=== PATIENT | female | born 1965 | race Caucasian/White ===

== ENCOUNTER 2025-05-27 14:11 | Outpatient (AMB) | payer OTHER, SELFPAY ==
--- OUTSIDE RECORDS SUMMARY | 2025-05-14 06:00 | XMS_ITS ---
Author Organization [facility] Address [address] [place] [id number] Care Team Providers Care Entry Processor Name Role Phone SERVANDO VUONG Primary Care Provider [phone] REASON FOR VISIT Possible sinus infection Encounters Encounter Location Date Provider Diagnosis [address] [id number] 05/14/2025 SERVANDO VUONG Plan Of Treatment Next Appt Details Provider Name:Madisyn Zavaleta, 1 08/10/2024 02:30:00 PM, [address] [place] [address], [phone], Progress Notes * Claire BARBERDOB:[birth year] (59 yo F)Acc No.[id number]:05/14/2025 Patient: Claire ABARCA Provider: Joyce VUONG MD :1965 A ge:59 Y S ex:Female Date:05/14/2025 Address:[address] [place] [id number] Subjective: * Chief Complaints: * 1 . Possible sinus infection. * Medical History: Objective: * Vitals: Assessment: Plan: * Treatment: * Procedure Codes: N OSHO NO SHOW FEE * Images: * Electronic signature of GISSEL VUONG MD on 05/27/2025 at 07:35 PM EST Sign off status: Pending * Provider: Joyce VUONG MD Date: 07/14/2024 Generated for Margarita powell/Vinay/Mohamud on: 07/27/2024 07:35 PM EST
--- NOTE | 2025-05-27 14:12 | A.PHYSOV ---
Vital Signs 05/27/25 14:14 Height 5 ft 9 in Weight 176 lb BMI 26.0 Intake Visit Reasons: 6W FUV Intake Note: Patient is a 59 year old female in office today for a low back pain follow up visit. 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 The pain was initially evaluated on April 15, 2025, and was radiating to the right leg. Despite extensive physical therapy and chiropractic treatments, the patient continued to experience persistent pain radiating to the right buttock and inner thigh. An MRI of the lumbar sacral spine obtained on January 22, 2025, showed right marginal osteophytes at the L5-S1 level with contact of the extraforaminal right L5 nerve root, which could be consistent with the patient's symptoms. The patient was initially prescribed 100 mg capsules of gabapentin, which were not found helpful, and later provided with a higher dose of 300 mg for nighttime use along with turmeric supplementation. The patient was also instructed on physician-guided home exercises. 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 The patient has experienced improvement in pain over the last four days, coinciding with running out of Plaquenil. Pain Description - Onset: Initially evaluated on April 15, 2025 - Quality: Radiating pain - Primary location: Lower back and hip - Radiation: Right leg, buttock, and inner thigh - Exacerbating factors: Not specified - Relieving factors: Turmeric supplementation, home exercises - Interference: Affects sleep, physical activity Results - Imaging: Lumbar sacral spine MRI on January 22, 2025, showed right marginal osteophytes at L5-S1 with contact of the extraforaminal right L5 nerve root PFSH Medical History (Updated 05/27/25 @ 14:32 by Han Desir DO) Sacroiliac inflammation Sacroiliac dysfunction Lumbar radiculitis Surgical History (Updated 05/27/25 @ 14:15 by Aislinn Simms MA) History of hernia repair History of Social History (Updated 05/27/25 @ 14:16 by Aislinn Simms MA) Alcohol intake: current Alcohol intake frequency: does not drink Patient Tobacco Use Status: Never used Tobacco Use of substances other than those prescribed or required for medical reasons: No Current occupational status: employed Review of Systems Narrative Review of Systems - Gastrointestinal: Denies changes in bowel habits - Constitutional: Denies fever or chills Denies change in bowel bladder habits, denies fever or chills Physical Exam Exam Exam: Physical Exam Patient appears to be in no acute distress, appropriately conversant oriented. She was able to ambulate without antalgia. She was able to perform heel walk and toe walk. Neurological examination was nonfocal. Lumbar range of motion was preserved, Pain with palpation over right gluteal muscle SI provocative maneuvers were negative patient demonstrated no upper motor neuron signs Vital Signs: BMI result Body Mass Index 26.0 Assessment & Plan Assessment & Plan (1) Lumbar radiculitis: Code(s): M54.16 - Radiculopathy, lumbar region Category: Medical (2) Sacroiliac dysfunction: Code(s): M53.3 - Sacrococcygeal disorders, not elsewhere classified Category: Medical (3) Sacroiliac inflammation: Code(s): M46.1 - Sacroiliitis, not elsewhere classified Category: Medical Plan Pain Management - Affect: Pain impacts sleep and physical activity - Analgesia: Gabapentin 300 mg at night, turmeric supplementation - Adverse Effects: None reported - Activities of Daily Living: Pain affects ability to perform physical activities - Aberrant Drug Related Behaviors: None reported Plan Patient was informed and verbally consented to the use of an ambient scribe for clinic note documentation during this visit. 1. Lower Back Pain The patient continues to experience lower back pain despite previous interventions such as physical therapy and chiropractic treatments. The plan includes continuing with gabapentin 300 mg at night and turmeric supplementation. The patient is also encouraged to perform physician-guided home exercises. 2. Hip Pain The patient reports persistent hip pain radiating to the right buttock and inner thigh. The plan includes continuing with current pain management strategies and considering referral to physical therapy for further evaluation and management. 3. Radicular Pain To The Right Leg The radicular pain to the right leg was initially evaluated and has shown some improvement. The plan includes monitoring the symptoms and adjusting treatment as necessary. 4. Osteophytes At L5-S1 The MRI findings of osteophytes at L5-S1 with contact of the extraforaminal right L5 nerve root are consistent with the patient's symptoms. The plan includes conservative management with pain medications and exercises. 5. Scarring Alopecia The patient has a history of scarring alopecia and has been on Plaquenil for nine years. The plan includes monitoring the condition and adjusting treatment as necessary. Discussion Notes During the visit, we discussed the patient's ongoing lower back and hip pain, and the potential benefits of continuing with gabapentin and turmeric supplementation. We also considered the possibility of referring the patient to physical therapy for further evaluation and management of the hip pain. The patient was advised to continue with home exercises and monitor symptoms, with follow-up as needed Patient Instructions - Continue taking gabapentin 300 mg at night. - Take turmeric supplementation as advised. - Perform physician-guided home exercises regularly. - Monitor symptoms and report any changes. - Consider referral to physical therapy for further evaluation. Orders: Orders PT Evaluation and Treatment Today M46.1 - Sacroiliitis, not elsewhere classified, M53.3 - Sacrococcygeal disorders, not elsewhere classified, M54.16 - Radiculopathy, lumbar region Coding Level of Care Code Est Pt Level 4 (00036) Complex visit Add On G2211 Diagnoses Lumbar radiculitis M54.16 Sacroiliac dysfunction M53.3 Sacroiliac inflammation M46.1
[2025-05-27 14:14] VITALS: BMI 26.0
--- OUTSIDE RECORDS SUMMARY | 2025-05-27 19:35 | XMS_ITS | Data Portability ---
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 Plan of Treatment Reminders Order Date Submit Date Provider Last Modified By Organization Details Last Modified Time Details Appointments None recorded . Lab cytology report, thin prep, smear or scraping , cervical or vaginal 2024 025 [facility]OR [facility] (Centralized Electronic Ordering - All Locations), Patient Can Go To The Location Of Their Choice, [id number] 5 12:15:58 hemoglob in, gastroin testinal , stool 2024 025 [email or web address] 1 In-Office Order, Internal Use Only DO Not Attach Compendium DO Not Attach Compendium, Do Not Delete/merge, [id number] 5 08:55:42 cytology report, thin prep, smear or scraping , cervical or vaginal 2023 024 [facility] (Centralized Electronic Ordering - All Locations), Patient Can Go To The Location Of Their Choice, [id number] 4 08:09:59 hemoglob in, gastroin testinal , stool 2023 024 [email or web address] 1 In-Office Order, Internal Use Only DO Not Attach Compendium DO Not Attach Compendium, Do Not Delete/merge, [id number] 10:12:46 pap test, thinprep , cervical 2022 023 [email or web address] [facility] (Centralized Electronic Ordering - All Locations), Patient Can Go To The Location Of Their Choice, [id number] 3 07:39:07 fecal occult blood, stool 2022 023 [email or web address] 1 In-Office Order, Internal Use Only DO Not Attach Compendium DO Not Attach Compendium, Do Not Delete/merge, [id number] 3 15:17:22 pap test, thinprep , cervical 2020 021 [facility], Cytopathology Service, [address] [place], [address], 1 08:21:13 fecal occult blood, stool 2020 021 [email or web address] 1 In-Office Order, Internal Use Only DO Not Attach Compendium DO Not Attach Compendium, Do Not Delete/merge, [id number] 1 10:02:32 pap test, thinprep , cervical 2019 020 [facility], Cytopathology Service, [address] [place], [address], 0 07:51:17 fecal occult blood, stool 2019 020 NESTOR In-Office Order, Internal Use Only DO Not Attach Compendium DO Not Attach Compendium, Do Not Delete/merge, [id number] 0 14:09:19 Referral None recorded . Procedures None recorded . Surgeries None recorded . Imaging MAMMO, screenin g, digital, bilatera l - Breast Aspirati on and/or Biopsy if needed 2024 025 [email or web address] Orders, [address], [place] [address], [place], [address], 5 12:00:15 MAMMO, screenin g, digital, bilatera l 2022 023 [facility] (Mammography), [address] [place], [address], 4 07:40:32 MAMMO, screenin g, digital, bilatera l 2020 021 [email or web address] [facility] (Mammography), [address] [place] [address], [address], 3 07:44:35 MAMMO, screenin g, digital, bilatera l 2019 020 [facility]), [address], [place], [address], 2 08:04:37 Medication Orders estradio l 1 mg tablet 2024 025 [facility]/Pharmacy #1130, [phone] [place], [address], 5 08:38:26 progeste satya microniz ed 200 mg capsule 2024 025 [facility]/Pharmacy #1130, [phone] [place], [address], 5 08:38:26 triamcin olone acetonid e 0.1 % topical ointment 2024 025 [facility]/Pharmacy #1130, [phone] [place], [address], 5 08:57:27 estradio l 1 mg tablet 2023 024 [facility]/Pharmacy #1130, [phone] [place], [address], 4 10:13:12 progeste satya microniz ed 200 mg capsule 2023 024 [facility]/Pharmacy #1130, [phone] [place], [address], 4 10:13:12 progeste satya microniz ed 200 mg capsule 2022 023 [facility], [address] [place] [address], [address], 3 15:17:25 estradio l 1 mg tablet 2022 023 [facility], [address] [place] [address], [address], 3 15:17:26 progeste satya microniz ed 200 mg capsule 2020 021 [facility], [address] [place] [address], [address], 1 10:02:34 estradio l 1 mg tablet 2020 021 [facility], [address] [place] [address], [address], 1 10:02:34 estradio l 1 mg tablet 2019 020 [facility]1130, [phone] [place], [address], 0 13:47:59 progeste satya microniz ed 200 mg capsule 2019 020 [facility], [phone] [place], [address], 0 13:47:59 Patient TargetsNo targets recorded. Patient Instructions Encounter Date Encounter Id Patient Instructions Last Modified By Organization Details Last Modified Time 05/27/2020 [id number] learning about healthy weight [place] Not available 05/27/2020 13:47:56 She is here for annual exam, is doing well on HRT, elects to continue. note from 2019: She is here for annual exam, has an inflammatory syndrome is on spices, herbs , meds and NSAIDS., with good improvement. She stopped the HRT 6 months ago because she just got too busy to pick it up, would like to restart. 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 We discussed having her begin to take hormone replacement therapy. She appears to be doing well. 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 We discussed the need to take a progestin if a uterus is present, and the rationale behind that. We discussed the stated risks of one in 10,000 of development of a blood clot/DVT/PE that could be life threatening. We discussed the Women's Health Initiative study and the findings. We discused the PEPPI study as well. She is aware that there are conflicting reports in the medical literature concerning the risks and benefits of HRT. We disussed that women are advised by ACOG to take HRT in the lowest dose necessary, and for the shortest time necessary, to control their symptoms. After a long discussion of the potential risks and benefits of HRT she elects to continue HRT. All questions were answered. Rx for HRT is called in to the pharmacy. Call if any vaginal bleeding occurs upon initiation of HRT, or at any time postmenopausally. Not available 05/27/2020 13:48:20 06/08/2021 [id number] learning about healthy weight Not available 06/08/2021 10:02:32 She is here for annual exam, is doing well on HRT, elects to continue. She is using [employer] phototherapy stem cell patches, we discussed that I do not understand the science behind them, but she feels they are quite useful and is happy to use them. 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 Not available 06/08/2021 10:06:15 08/09/2022 [id number] learning about healthy weight Not available 08/09/2022 15:17:22 She is here for annual exam, is doing well on her oral HRT and elects to continue. Note from 2020: She is here for annual exam, is doing well on HRT, elects to continue. She is using [employer] phototherapy stem cell patches, we discussed that I do not understand the science behind them, but she feels they are quite useful and is happy to use them. 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 We discussed the need to take a progestin if a uterus is present, and the rationale behind that. We discussed the stated risks of one in 10,000 of development of a blood clot/DVT/PE that could be life threatening. We discussed the Women's Health Initiative study and the findings. We discused the PEPPI study as well. She is aware that there are conflicting reports in the medical literature concerning the risks and benefits of HRT. We disussed that women are advised by ACOG to take HRT in the lowest dose necessary, and for the shortest time necessary, to control their symptoms. After a long discussion of the potential risks and benefits of HRT she elects to continue HRT. All questions were answered. Rx for HRT is called in to the pharmacy. Call if any vaginal bleeding occurs upon initiation of HRT, or at any time postmenopausally. Not available 08/09/2022 15:17:34 10/09/2023 [id number] She is here for annual exam, is doing well on her oral HRT and elects to continue. She appears to be doing well. Renew HRT. Monthly self breast exam was taught, and stressed, and is advised to call if she discovers any new mass in the breast. Not available 10/09/2023 10:13:18 12/15/2024 [id number] learning about healthy weight Not available 12/15/2024 08:38:23 She is here for annual exam, is doing well on her oral HRT and elects to continue. She appears to be doing well. Renew HRT. She appears to be doing well. She is having some vulvar itching, rx Aristocort for comfort and if has yeast on pap will call in [facility]Societyan. 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 We discussed the need to take a progestin if a uterus is present, and the rationale behind that. We discussed the stated risks of one in 10,000 of development of a blood clot/DVT/PE that could be life threatening. We discussed the Women's Health Initiative study and the findings. We discused the PEPPI study as well. She is aware that there are conflicting reports in the medical literature concerning the risks and benefits of HRT. We disussed that women are advised by ACOG to take HRT in the lowest dose necessary, and for the shortest time necessary, to control their symptoms. After a long discussion of the potential risks and benefits of HRT she elects to continue HRT. All questions were answered. Rx for HRT is called in to the pharmacy. Call if any vaginal bleeding occurs upon initiation of HRT, or at any time postmenopausally. Not available 12/15/2024 08:56:41 Reason for Referral None Reported. Results Created Date Observation Date Name Description Value Unit Range Abnormal Flag Note LastModifiedBy Organization Detail LastModifiedTime 05/27/2005/27/2020 pap test, thinp rep, cervi delores [id number] ThinP rep Pap, Image d: NEGAT LORRAINE FOR SQUAM OUS INTRA EPITH ELIAL CHUY [place] AND FLORY RO . Sushma Ontiveros a , CT( CP) (Case elect ramanclarence yonathan chopra 05 31 2020) ADEQU ACY: Satis facto ry Endoc ervic al/tr ansfo rmati on zone compo nent prese nt. SOURC E: ThinP rep Pap HPV IF ASCUS , Cervi delores, Image d CLINI DELORES INFOR MATIO N: HPV If Diagn osis of ASCUS . LPS neg, z12.4 , z01.4 19 Not Available [facility], Cytopathology Service [address] [place], [address], 05/31/2020 12:20:58 05/27/2005/27/2020 fecal occul t blood , stool Occult Blood negati ve Not Available In-Office Order Internal Use Only DO Not Attach Compendium DO Not Attach Compendium, Do Not Delete/merge, [id number] 05/27/2020 13:06:11 06/08/20 21 06/08/2021 PAP1C ASE [id number] ThinP rep Pap, Image d: NEGAT LORRAINE FOR SQUAM OUS INTRA EPITH ELIAL LESIO N AND MALIG JAYJYA . Note: The Pap test is a scree agata test with an inher ent false negat lorraine rate. Autom ated presc reeni ng of all liqui d based speci mens is perfo rmed by the ThinP rep Imagi ng Syste m unles s other [place] Florencio Hanks , CT( CP) (Case elect viral mcmanus maite d 06 19 2021) ADEQU ACY: Satis facto ry Endoc ervic al/tr ansfo rmati on zone compo nent absen t. SOURC E: ThinP rep Pap HPV IF Ascus : Refle x 16 and 18, Cervi delores, Image d CLINI DELORES INFOR MATIO N: HPV If Diagn osis of ASCUS . Z12.4 Not Available [facility], Cytopathology Service [address] [place], [address], 06/20/2021 07:45:48 06/08/20 21 06/08/2021 fecal occul t blood , stool Occult Blood negati ve Not Available In-Office Order Internal Use Only DO Not Attach Compendium DO Not Attach Compendium, Do Not Delete/merge, [id number] 06/08/2021 09:40:08 08/09/19 23 08/09/2022 [facility] results Patie nt Name: FLORENCIO SAM nt : 1965 (Age: 56) Lab Acces cary #: [id number] Colle ction Date: 023 Acces cary Date: 023 Sign Out Date: 023 Tissu e Sourc e: 1: THINP REP JUKEBOX ROUTEMAN PAP TEST, CERVI DELORES: Final Diagn osis: NEGAT LORRAINE FOR INTRA EPITH ELIAL LESIO N OR MALIG JAYJAY . Satis facto ry for evalu ation . Endoc ervic al/tr ansfo rmati on zone prese nt. Clini delores Histo ry: Date of Last Menst rual Perio d: not avail able Menst rual Histo ry: not avail able Contr acept lorraine Histo ry: not avail able Ancil anne Testi ng: HPV (ASCU S) Case image d by the Thin rep Emma Champion m with emory harrell or pelon Ruiz rmbrian at [facility] ate Refer ence Labor atory depar tment of Cytol ogy, [address] [place] Clini delores Histo ry (othe r): z01.4 19, 08/28 neg, routi ne scree n Phone #: [phone], On-Ca ll Patho logis t: [id number] Not Available [facility] (Centralized Electronic Ordering - All Locations) Patient Can Go To The Location Of Their Choice, [id number] 08/15/2022 11:36:17 08/09/19 23 08/09/2022 fecal occul t blood , stool Occult Blood negati ve Not Available In-Office Order Internal Use Only DO Not Attach Compendium DO Not Attach Compendium, Do Not Delete/merge, [id number] 08/09/2022 14:15:35 10/09/19 24 10/16/2023 IGP, RFX APTIM A HPV ASCU diagnosis: Commen t NEGAT LORRAINE FOR INTRA EPITH ELIAL LESTAMIE N OR FLORY RO . Not Available [facility] ([facility]) [address] [facility], [place], [address], 10/16/2023 08:09:59 10/09/19 24 10/16/2023 IGP, RFX APTIM A HPV ASCU specimen adequacy: Commen t Satis facto ry for evalu ation . Endoc ervic al and/o r squam ous metap lasti c cells (endo cervi delores compo nent) are prese nt. Not Available [facility] ([facility]) [address] [place], [address], 10/16/2023 08:09:59 10/09/19 24 10/16/2023 IGP, RFX APTIM A HPV ASCU clinician provided ICD10: Commen t Z01.4 19 Not Available [facility] ([facility]) [address] [place], [address], 10/16/2023 08:09:59 10/09/19 24 10/16/2023 IGP, RFX APTIM A HPV ASCU performed by: Saman carrasco, Cytot trena boateng (ASCP ) Not Available [facility] ([facility]) [address] [facility], [place], [address], 10/16/2023 08:09:59 10/09/19 24 10/16/2023 IGP, RFX APTIM A HPV ASCU . . Not Available [facility] ([facility]) [address] [facility], [place], [address], 10/16/2023 08:09:59 10/09/19 24 10/16/2023 IGP, RFX APTIM A HPV ASCU note: Saman boateng The Pap smear is a scree agata test marcello andres to aid in the detec tion of savita ligna nt and malig nant condi tions of the uteri ne cervi x. It is not a diagn ostic proce dure and shoul d not be used as the sole means of detec ting cervi delores cance r. Both false -posi tive and false -nega tive repor ts do occur . Not Available [facility] ([facility]) [address] [facility], [place], [address], 10/16/2023 08:09:59 10/09/19 24 10/16/2023 IGP, RFX APTIM A HPV ASCU test methodology: Saman boateng This liqui d based ThinP rep(R ) pap test was scree mckenna with the use of an image guide keysha rebolledo. Not Available [facility] ([facility]) [address] [facility], [place], [address], 10/16/2023 08:09:59 10/09/19 24 10/16/2023 IGP, RFX APTIM A HPV ASCU . Saman boateng The HPV DNA refle x crite fransico were not met with this speci men resul t there fore, no HPV testi ng was perfo rmed. Not Available [facility] ([facility]) [address] [place], [address], 10/16/2023 08:09:59 10/09/19 24 10/09/2023 hemog lobin , gastr ointe theresa l, stool Occult Blood negati ve Not Available In-Office Order Internal Use Only DO Not Attach Compendium DO Not Attach Compendium, Do Not Delete/merge, [id number] 10/09/2023 09:47:14 12/16/19 25 12/17/2024 IGP, RFX APTIM A HPV ASCU diagnosis: Saman PETERS FOR INTRA EPITH ELIAL LESTAMIE N OR FLORY RO . Not Available [facility] ([facility]) [address] [facility], [place], [address], 12/17/2024 12:15:58 12/16/19 25 12/17/2024 IGP, RFX APTIM A HPV ASCU specimen adequacy: Saman boateng Satis factcrissy betancourt for evalu ation . Endoc ervic al and/o r squam ous metap lasti c cells (endo cervi delores compo nent) are prese nt. Not Available [facility] ([facility]) [address] [facility], [place], [address], 12/17/2024 12:15:58 12/16/19 25 12/17/2024 IGP, RFX APTIM A HPV ASCU clinician provided ICD10: Saman boateng Z01.4 19 Not Available [facility] ([facility]) [address] [place], [address], 12/17/2024 12:15:58 12/16/19 25 12/17/2024 IGP, RFX APTIM A HPV ASCU performed by: Saman betancourt A Prior , Cytol ogist (ASCP ) Not Available [facility] ([facility]) [address] [place], [address], 12/17/2024 12:15:58 12/16/19 25 12/17/2024 IGP, RFX APTIM A HPV ASCU . . Not Available [facility] ([facility]) [address] [facility], [place], [address], 12/17/2024 12:15:58 12/16/19 25 12/17/2024 IGP, RFX APTIM A HPV ASCU note: Commen t The Pap smear is a scree agata test desig mckenna to aid in the detec tion of savita ligna nt and malig nant condi tions of the uteri ne cervi x. It is not a diagn ostic proce dure and shoul d not be used as the sole means of detec ting cervi delores cance r. Both false -posi tive and false -nega tive repor ts do occur . Not Available [facility] ([facility]) [address] [facility], [place], [address], 12/17/2024 12:15:58 12/16/19 25 12/17/2024 IGP, RFX APTIM A HPV ASCU test methodology: Commen t This liqui d based ThinP rep(R ) pap test was scree mckenna with the use of an image guide d systbernarda m. Not Available [facility] ([facility]) [address] [facility], [place], [address], 12/17/2024 12:15:58 12/16/19 25 12/17/2024 IGP, RFX APTIM A HPV ASCU . Commen t The HPV DNA refle x crite fransico were not met with this speci men resul t there fore, no HPV testi ng was perfo rmed. Not Available [facility] ([facility]) [address] [facility], [place], [address], 12/17/2024 12:15:58 12/16/19 25 12/15/2024 hemog lobin , gastr ointe theresa l, stool Occult Blood negati ve Not Available In-Office Order Internal Use Only DO Not Attach Compendium DO Not Attach Compendium, Do Not Delete/merge, [id number] 12/15/2024 08:26:44 Result Notes None recorded. Problems Name Problem SNOMED Code Status Onset Date Resolution Date Notes Provider Name and Address Organization Details Recorded Time Menopausal syndrome 028160177 Active improved 06/21 with addition of HRT Marilyn العراقي MD [address], [place], 5, [place] - [facility], 6 16:26:04 Insomnia 684014130 Active Marilyn العراقي MD [address], [place], 5, [place] - [facility], 6 16:20:22 Anxiety 70234515 Active Marilyn العراقي MD [address], [place], 5, [place] - [facility], 6 16:20:22 Migraine 72305265 Active due to sinus issues Marilyn العراقي MD [address], [place], 5, [place] - [facility], 6 16:20:22 Loss of hair 008291008 Active 2016 HAJA Navarro in [facility], 7 13:46:30 Hypertensiv e disorder 47329604 Active 2022 HAJA Kennedy in [facility], 3 14:24:48 Problem Notes None recorded. Procedures Surgical History Date Name Laterality Status Provider Name and Address Organization Details Recorded Time 4 Most Recent Mammogram completed Judy Kerr in [facility], 12/15/2024 08:26:11 6 Caesarean Section completed Zulema Kerr in [facility], 07/04/2015 14:10:08 01/01/200 5 Other completed Zulema Cuba s in [facility], 07/04/2015 14:10:08 199 9 Caesarean Section completed Zulema Kerr in [facility], 07/04/2015 14:10:08 Imaging Results None recorded. Procedure Notes None recorded. Medical Equipment None Reported. Allergies Allergen ID Allergen Name Allergen Category Reaction Reaction Severity Criticality Documentation Date Start Date Code Code System Note Provider Name and Address Organization Details Recorded Time 41093 Product containin g penicilli n (product) medicatio n hives Not available Not available 07/04/2015 60415 8001 SNOMED Judy GómezHAJA vanessa in [facility], 5 08:22:13 55167 amlodipin e medicatio n cough Not available Not available 10/09/2023 98671 RxNorm Judy GómezHAJA vanessa in [facility], 4 09:40:44 Medications Name Sig Start Date Stop Date Status Note LastModified by Organization Details LastModified Time quetiapine 25 mg tablet TAKE 1 TABLET BY MOUTH AT BEDTIME 07/27 completed Not Available Not Available Not Available pioglitazon e 15 mg tablet TAKE 1 TABLET BY MOUTH EVERY DAY 02/19 completed Not Available Not Available Not Available fluconazole 100 mg tablet TAKE 2 TABLETS BY MOUTH EVERY DAY FOR 3 DAYS 07/27 completed Not Available Not Available Not Available buspirone 5 mg tablet 07/27 completed Not Available Not Available Not Available clonidine HCl 0.1 mg tablet TAKE 1 TO 2 TABLETS BY MOUTH AT BEDTIME NEEDED 08/09 completed Not Available Not Available Not Available doxycycline hyclate 100 mg capsule TAKE 1 CAPSULE BY MOUTH TWICE A DAY 12/15 completed Not Available Not Available Not Available ketoconazol e 2 % shampoo APPLY TO SCALP 2 TIMES A WEEK, LEAVE ON 5 MIN THEN WASH OFF active Not Available Not Available No t Available trazodone 50 mg tablet TAKE 1 TABLET BY MOUTH EVERY NIGHT NEEDED active Not Available Not Available No t Available azithromyci n 250 mg tablet TAKE 2 TABLETS BY MOUTH TODAY, THEN TAKE 1 TABLET DAILY FOR 4 DAYS active Not Available Not Available No t Available tizanidine 4 mg tablet TAKE 1 TABLET BY MOUTH EVERY DAY AT BEDTIME NEEDED 12/15 completed Not Available Not Available Not Available fluconazole 150 mg tablet TAKE 1 BY MOUTH DIRECTED FOR YEAST VAGINITIS . MAY REPEAT AFTER 72 HOURS NEEDED, FOR 3 DAYS 02/19 completed Not Available Not Available Not Available methylpheni date 10 mg tablet TAKE 1 TABLET BY MOUTH TWICE A DAY NEEDED 02/19 completed Not Available Not Available Not Available ketotifen 0.025 % (0.035 %) eye drops 02/19 completed Not Available Not Available Not Available prednisone 20 mg tablet TAKE 1 TABLET BY MOUTH EVERY DAY WITH FOOD OR MILK FOR 7 DAYS 12/15 completed Not Available Not Available Not Available dextroamphe tamine-amph etamine 10 mg tablet TAKE 1/2-1 TAB BY MOUTH EVERY EVENING NEEDED 02/19 completed Not Available Not Available Not Available fluoxetine 10 mg tablet TAKE 1 TABLET BY MOUTH TWICE DAILY active Not Available Not Available No t Available prednisone 5 mg tablet TAKE 2 TABS DAILY X 2 DAYS, 1 1/2 TABS X 2 DAYS, 1 TAB X 2 DAYS THEN 1/2 TABS X 3 DAY 02/19 completed Not Available Not Available Not Available amlodipine 2.5 mg tablet TAKE 1 TABLET BY MOUTH EVERY DAY FOR 30 DAYS 10/08 completed Not Available Not Available Not Available hydroxyzine HCl 50 mg tablet TAKE 1/2 TO 1 TABLET BY MOUTH EVERY DAY AT BEDTIME NEEDED active Not Available Not Available No t Available betamethaso ne valerate 0.1 % lotion APPLY TO AFFECTED AREA TWICE A DAY 02/19 completed Not Available Not Available Not Available sulfamethox azole 800 mg-trimetho prim 160 mg tablet TAKE 1 TAB BY MOUTH 2 TIMES A DAY 07/27 completed Not Available Not Available Not Available triamterene 37.5 mg-hydrochl orothiazide 25 mg capsule TAKE ONE CAPSULE BY MOUTH EVERY DAY 02/19 completed Not Available Not Available Not Available dexmethylph enidate 5 mg tablet TAKE 1/2 TO 1 TAB BY MOUTH TWICE A DAY NEEDED 06/08 completed Not Available Not Available Not Available clonidine HCl 0.2 mg tablet TAKE 1/2 TO 1 TABLET BY MOUTH EVERY DAY AT BEDTIME NEEDED active Not Available Not Available No t Available alprazolam 0.25 mg tablet TAKE 1 TO 2 TABLETS AT BEDTIME FOR SLEEP NEEDED 02/19 completed Not Available Not Available Not Available estradiol 1 mg tablet one tab po qd 2024 active Not Available Not Available Not Avai lable dextroamphe tamine-amph etamine ER 20 mg 24hr capsule,ext end release TAKE 1 CAP BY MOUTH EVERY DAY IN THE MORNING *ACTAVIS BRAND ONLY* 08/09 completed Not Available Not Available Not Available benzonatate 100 mg capsule 02/19 completed Not Available Not Available Not Available fluoxetine 20 mg tablet TAKE 1 TABLET BY MOUTH EVERY DAY 12/15 completed Not Available Not Available Not Available triamcinolo ne acetonide 0.1 % topical ointment APPLY TOPICALLY TWICE A DAY NEEDED active Not Available Not Available No t Available lisinopril 10 mg tablet TAKE 1 TABLET BY MOUTH EVERY DAY 02/19 completed Not Available Not Available Not Available clobetasol 0.05 % topical foam APPLY TO THE AFFECTED AREAS ON THE SCALP 2-3 TIMES WEEKLY 02/19 completed Not Available Not Available Not Available losartan 25 mg tablet TAKE 1 TABLET BY MOUTH EVERY DAY FOR 30 DAYS active Not Available Not Available No t Available progesteron e micronized 200 mg capsule TAKE 1 CAPSULE BY MOUTH EVERYDAY AT BEDTIME active Not Available Not Available No t Available betamethaso ne dipropionat e 0.05 % topical cream APPLY TO SCALP ONCE DAILY active Not Available Not Available No t Available mometasone 50 mcg/actuati on nasal spray USE 2 SPRAYS IN EACH NOSTRIL EVERY DAY 02/19 completed Not Available Not Available Not Available montelukast 10 mg tablet TAKE 1 TABLET BY MOUTH AT BEDTIME 05/27 completed Not Available Not Available Not Available codeine 10 mg-guaifene sin 100 mg/5 mL oral liquid 02/19 completed Not Available Not Available Not Available azelastine 137 mcg (0.1 %) nasal spray SPRAY 1 SPRAY INTO EACH NOSTRIL TWICE DAILY active Not Available Not Available No t Available hydroxychlo roquine 200 mg tablet TAKE 1 TABLET BY MOUTH TWICE A DAY active Not Available Not Available No t Available levofloxaci n 500 mg tablet 06/08 completed Not Available Not Available Not Available methylpredn isolone 4 mg tablets in a dose pack 02/19 completed Not Available Not Available Not Available Prozac 10 mg capsule Take 1 capsule every day by oral route. 08/09 completed Not Available Not Available Not Available methylpheni date ER 18 mg tablet,exte nded release 24 hr TAKE 1 TABLET BY MOUTH EVERY MORNING active Not Available Not Available No t Available fluoxetine 20 mg capsule TAKE 1 CAPSULE BY MOUTH EVERY MORNING 02/19 completed Not Available Not Available Not Available fluticasone propionate 50 mcg/actuati on nasal spray,suspe nsion SPRAY 1 SPRAY INTO EACH NOSTRIL DIRECTED ONCE DAILY, FOR NASAL DECONGEST ANT. active Not Available Not Available No t Available metformin ER 500 mg tablet,exte nded release 24 hr TAKE 1 TABLET BY MOUTH EVERY DAY WITH EVENING MEAL active Not Available Not Available No t Available betamethaso ne dipropionat e 0.05 % lotion APPLY TOPICALLY AT BEDTIME NEEDED, DECREASE AND WEAN OFF IMPROVE active Not Available Not Available No t Available doxycycline hyclate 100 mg tablet TAKE 1 TABLET BY MOUTH TWICE A DAY WITH FOOD & GLASS OF WATER 12/15 completed Not Available Not Available Not Available finasteride 5 mg tablet TAKE 1 TABLET BY MOUTH EVERY DAY FOR 90 DAYS active Not Available Not Available No t Available loratadine 10 mg tablet 02/19 completed Not Available Not Available Not Available spironolact one 50 mg tablet 06/08 completed Not Available Not Available Not Available amoxicillin 875 mg-potassiu m clavulanate 125 mg tablet TAKE 1 TABLET EVERY 12 HOURS BY ORAL ROUTE FOR 10 DAYS, FOR SINUSITIS . 12/15 completed Not Available Not Available Not Available methylpheni date ER 27 mg tablet,exte nded release 24 hr TAKE 1 TABLET BY MOUTH EVERY DAY 02/19 completed Not Available Not Available Not Available dextroamphe tamine-amph etamine ER 15 mg 24hr capsule,ext end release 06/08 completed Not Available Not Available Not Available azithromyci n 500 mg tablet 02/19 completed Not Available Not Available Not Available bupropion HCl XL 300 mg 24 hr tablet, extended release TAKE 1 TABLET BY MOUTH EVERY MORNING 07/27 completed Not Available Not Available Not Available Vyvanse 30 mg capsule TAKE 1 CAPSULE BY MOUTH EVERY MORNING 08/09 completed Not Available Not Available Not Available Vyvanse 50 mg capsule TAKE 1 CAPSULE BY MOUTH EVERY MORNING 12/15 completed Not Available Not Available Not Available Vyvanse 60 mg capsule TAKE 1 CAPSULE BY MOUTH EVERY MORNING DOSE INCREASED 12/15 completed Not Available Not Available Not Available Vyvanse 20 mg capsule TAKE 1 CAPSULE BY MOUTH EVERY MORNING (DECREASE IN DOSE) 12/15 completed Not Available Not Available Not Available lisdexamfet amine 40 mg capsule TAKE 1 CAPSULE BY MOUTH EVERY MORNING active Not Available Not Available No t Available baclofen 5 mg tablet TAKE 1 TABLET BY MOUTH THREE TIMES A DAY 12/15 completed Not Available Not Available Not Available Paxlovid 300 mg (150 mg x 2)-100 mg tablets in a dose pack TAKE 3 TABLETS BY MOUTH TWICE A DAY FOR 5 DAYS active Not Available Not Available No t Available Vitals Date Recorded Body weight Body mass index (BMI) Body height Heart rate Systolic And Diastolic Provider Name and Address Organization Details Last Updated DateTime 08/09/2022 93271.63 g 26.6 kg/m2 175.26 cm 85 /min 139/83 mm[Hg] Simi Kerr in [facility], 08/09/2022 14:21:02 Date Recorded Body weight Body mass index (BMI) Body height Body temperature Heart rate Systolic And Diastolic Provider Name and Address Organization Details Last Updated DateTime 4 65313.3 3 g 24.5 kg/m2 175.26 cm 97.3 [degF] 93 /min 131/76 mm[Hg] Judy Kerr in [facility], 4 09:38:56 Date Recorded Body height Body mass index (BMI) Body weight Heart rate Systolic And Diastolic Provider Name and Address Organization Details Last Updated DateTime 12/15/2024 177.8 cm 25.4 kg/m2 11452.85 g 91 /min 126/78 mm[Hg] Judy Kerr in [facility], 12/15/2024 08:21:51 Date Recorded Body height Body mass index (BMI) Body weight Body temperature Heart rate Systolic And Diastolic Provider Name and Address Organization Details Last Updated DateTime 0 175.26 cm 25.8 kg/m2 35519.3 1 g 98.6 [degF] 72 /min 130/83 mm[Hg] Simi Kerr in [facility], 0 13:05:20 Date Recorded Body height Body mass index (BMI) Body weight Body temperature Heart rate Systolic And Diastolic Provider Name and Address Organization Details Last Updated DateTime 1 175.26 cm 25.3 kg/m2 50620.0 1 g 97.4 [degF] 80 /min 137/83 mm[Hg] Judy Hearn MA - [facility] in [facility], 1 09:42:05 Social History Question Answer Notes LastModified by Organizat ion Details LastModified Time Tobacco Smoking Status Former Smoker Judy oneil MA - [facility] in [facility], 12/15/2024 08:25:37 How Many Years Have You Consumed Alcohol? 30 Information not available 06/08/2021 What Is Your Level Of Caffeine Consumption? None Information not available 08/09/2022 In The 14 Days Before Symptom Onset, Have You Had Close Contact With A Laboratory-confir med COVID-19 While That Case Was Ill? No Information not available 06/08/2021 In The 14 Days Before Symptom Onset, Have You Had Close Contact With A Person Who Is Under Investigation For COVID-19 While That Person Was Ill? No Information not available 06/08/2021 Have You Been To An Area Known To Be High Risk For COVID-19? No Information not available 06/08/2021 What Type Of Diet Are You Following? REGULAR [id number] Information not available 05/10/2020 Which Illicit Or Recreational Drugs Have You Used? None [id number] Information not available 05/10/2020 Do You Reside In Or Have You Traveled To An Area Where Ebola Virus Transmission Is Active? No [id number] Information not available 05/10/2020 Education 4 Year College [email or web address] Information not available 07/04/2015 What Is The Highest Grade Or Level Of School You Have Completed Or The Highest Degree You Have Received? [id number] Information not available 06/08/2021 Who Is Your Employer? [place] Information not available 10/09/2023 How Many Days In The Past Year Have You Had A Heavy Drinking Consumption (4+ Female, 5+ Male)? 0 Information no t available 07/27/2016 Are There Any Guns Present In Your Home? No Information not available 06/08/2021 High Number Of Sexual Partners No Information not available 07/27/2016 To Which Gender Do You Self-identify? Female Information not available 07/27/2016 Marital Status [email or web address] Informatio n not available 07/04/2015 What Was The Date Of Your Most Recent Tobacco Screening? 12/15/2024 Information not available 12/15/2024 What Is Your Relationship Status? Information not available 06/08/2021 Are You Sexually Active? Yes Not Elder Information not available 08/09/2022 At What Age Did You Start Smoking Tobacco? 20 Information not available 12/15/2024 How Much Tobacco Do You Smoke? No [id number] Information not available 05/10/2020 General Stress Level Medium Information not available 05/27/2020 How Many Years Have You Smoked Tobacco? 5 Information not available 12/15/2024 Have You Recently (within The Last 12 Weeks, Or During A Current ) Traveled To Or Lived In A Zika-affected Area? No Information not available 07/27/2016 How Many Days In The Past Year Have You Consumed 4 Or More Drinks? 0 Information no t available 06/08/2021 Sex: Female Functional Status Question Answer Note LastModified by Organizat ion Details LastModified Time Do you use any illicit or recreational drugs? No Information not available 06/08/2021 Do you or have you ever used any other forms of tobacco or nicotine? No Information not available 06/08/2021 What is your level of alcohol consumption? None Information not available 12/15/2024 Do you or have you ever used smokeless tobacco? Never used smokeless tobacco [id number] Information not available 05/10/2020 Are you currently employed? 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 Never used electronic cigarettes [id number] Information not available 05/10/2020 What is your exercise level? Heavy Information not available 08/09/2022 Mental Status Question Answer Note LastModified by Organization D etails LastModified Time Do you feel stressed (tense, restless, nervous, or anxious, or unable to sleep at night)? [id number] Information not available 06/08/2021 Family History Relationship Description Onset Age of this Age Resolved Age Notes LastModified by Organization Details LastModified Time Paternal Aunt Malignant neoplasm of breast Not available 07/09 16:07:50 Paternal Uncle Malignant neoplasm of colon Not available 07/09 16:07:50 Mother Heart disease heart block Not available 08/04/2015 16:07:50 Medical History Condition Response Anesthesia complications N High Blood Pressure N Candidate for MyRisk panel N Thyroid Problems N Kidney or Bladder Problems N Depression N GI Problems N Lung Disease N Defects or Inherited Disease N Anemia N History of Ovarian Cancer N History of Breast Cancer N TIMUR exposure N BRCA testing in past N Osteopenia N Psychiatric Illness N Anxiety Disorder Y Diabetes N Arthritis N Headaches or Migraines Y Infertility N Asthma N History of Cancer N Endometriosis N Hepatitis N Heart Disease N Hypertension N Osteoporosis N Gynecological History Statement/Question Response Menses Monthly N If Post Menopausal, Age at Menopause 45 Age at Menarche 11 Most Recent Mammogram 04/09/2024 Age at First Child 34 Obstetrics History GPAL:G 2 P 2 0 0 2 Type Value Full Term 2 Living 2 Total 2 Immunizations Vaccine Type Date Status Note Provider Nam e and Address Organization Details Recorded Time Influenza, split virus, trivalent, preservative 5 completed HAJA Navarro in [facility], 07/04/2015 13:59:36 Influenza, split virus, quadrivalent, preservative 6 completed HAJA Barajas in [facility], 07/27/2016 13:11:36 Influenza, split virus, quadrivalent, preservative 8 completed Juyd Vanceywor HAJA oneil in [facility], 02/19/2019 08:13:58 Influenza, split virus, quadrivalent, preservative 0 completed Simi Daigle HAJA oneil - [facility] in [facility], 05/27/2020 13:08:26 Influenza, split virus, quadrivalent, preservative 1 completed Judy RhoadeswHAJA castano in [facility], 06/08/2021 09:43:23 COVID-19, mRNA, LNP-S, PF, 30 mcg/0.3 mL dose 1 completed Judy VanceywHAJA castano in [facility], 06/08/2021 09:44:15 Past Encounters Encounter ID Performer Location Encounter Start Date Encounter Closed Date Diagnosis/Indication Diagnosis SNOMED-CT Code Diagnosis ICD10 Code Diagnosis IMO Codes Diagnosis Note [id number] MD MARILYN Carrero MD [address] [place] [address], [address] [place] [phone] 5 07/04/2015 13:43:10 07/04/2015 16:07:18 Menopausal syndrome 264727526 N95.9 [id number] MD MARILYN Carrero MD [address] [place] [address], [address] [place] [address] [id number] 5 08/04/2015 15:40:07 08/05/2015 09:42:12 Menopausal syndrome 943108498 N95.1 [id number] MD MARILYN Carrero MD [address] [place] [address], [address] [place] [address] [id number] 5 07/27/2016 12:56:05 07/27/2016 13:43:28 Specialized medical examination 96033356 Z01.419 Screening for malignant neoplasm of rectum 139532185 Z12.12 Screening mammography 24 072459 Z12.31 Menopausal syndrome 1237 15534 N95.1 [id number] MD MARILYN Carrero MD [address] [place] [address], [address] [place] [address] [id number] 11/23/2016 13:38:17 11/23/2016 15:45:46 Alopecia 87930375 L65.9 Menopausal syndrome 1237 89461 N95.1 [id number] MD MARILYN Carrero MD [address] [place] [address],[facility] [place] [id number] 02/19/2019 08:00:28 02/19/2019 09:40:05 Specialized medical examination 71734154 Z01.419 Screening for malignant neoplasm of rectum 274084962 Z12.12 Screening mammography 24 232531 Z12.31 Menopausal syndrome 1237 93432 N95.1 [id number] MD MARILYN Carrero MD [address] [place] [address],[facility] [place] [id number] 05/27/2020 12:58:11 05/27/2020 13:56:20 Specialized medical examination 82360187 Z01.419 Screening for malignant neoplasm of rectum 487343238 Z12.12 Screening mammography 24 009108 Z12.31 Menopausal syndrome 1237 98310 N95.1 [id number] MD MARILYN Carrero MD [address] [place] [address] [place] [address] 06/08/2021 09:34:44 06/08/2021 10:12:25 Specialized medical examination 82074631 Z01.419 Screening for malignant neoplasm of rectum 740959824 Z12.12 Screening mammography 24 682739 Z12.31 Menopausal syndrome 1237 20062 N95.1 [id number] MD MARILYN Carrero MD [address] [place] [address],[facility] [place] [address] 08/09/2022 14:14:10 08/09/2022 15:28:54 Specialized medical examination 32240900 Z01.419 Screening for malignant neoplasm of rectum 307153043 Z12.12 Screening mammography 24 919500 Z12.31 Menopausal syndrome 1237 72389 N95.1 [id number] MD MARILYN Carrero MD [address] [place] [address],[facility] [place] [id number] 10/09/2023 09:34:54 10/09/2023 11:21:07 Specialized medical examination 69014650 Z01.419 Screening for malignant neoplasm of rectum 913323085 Z12.12 Screening mammography 24 040152 Z12.31 Menopausal syndrome 1237 34388 N95.1 [id number] MD MARILYN Carrero MD [address] [facility] [address] [place] [id number] 12/15/2024 08:14:44 12/15/2024 12:00:15 Menopausal syndrome 698788316 N95.1 Specialize d medical examination 01026923 Z01.419 Screening for malignant neoplasm of rectum 781328096 Z12.12 Screening mammography 24 219231 Z12.31 Lichen scl erosus of vulva 481402406 N90.4 2477959962 Health Concerns Section Related Observation LastModified by Organization Detai ls LastModified Time None Recorded Concern Status LastModified by Organization Details LastModified Time None Recorded Advance Directives Directive None Recorded Payers Insurance Date Sequence Insurance Name Policy Number Policy Alejandre Covered Member ID Alejandre Member ID Guarantor Name 12/15/2024 1 [facility] IN[facility] (INDEMNITY ) [id number] Florencio Dukeereau [id number] Florencio Dukeereau 12/15/2024 1 [facility] [id number] Florencio Dukeereau [id number] Florencio Dukeereau 07/27/2016 1 [employer]) [id number] Jaspreet Dukeereau [id number] Florencio Dukeereau 02/19/2019 1 [facility] [id number] Florencio Dukeereau [id number] Florencio Dukeereau 08/06/2022 HEALTH PLANS [facility] (O) Florencio Dukeereau [id number] Florencio Dukeereau 05/27/2020 1 [facility] (O) Florencio Dukeereau [id number] Florencio Dukeereau 06/08/2021 1 [employer] ([facility] [id number] Florencio Dukeereau [id number] Florencio Dukeerealynn Notes Date Note Type Note Provider Name and Address Organization Details Recorded Time 05/27/2020 text/html She is here for annual exam, is doing well on HRT, elects to continue. note from 2019: She is here for annual exam, has an inflammatory syndrome is on spices, herbs , meds and NSAIDS., with good improvement. She stopped the HRT 6 months ago because she just got too busy to pick it up, would like to restart. 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 We discussed having her begin to take hormone replacement therapy. Marilyn العراقي MD [address] [facility],[address], [place], [address], [employer] in [facility], 05/27/2020 13:48:40 06/08/2021 text/html She is here for annual exam, is doing well on HRT, elects to continue. 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 Marilyn العراقي MD [address] [facility],[address], [place], [phone], [employer] in [facility], 06/08/2021 10:07:23 08/09/2022 text/html She is here for annual exam, is doing well on her oral HRT and elects to continue. Note from 2020: She is here for annual exam, is doing well on HRT, elects to continue.She is using [employer] phototherapy stem cell patches, we discussed that I do not understand the science behind them, but she feels they are quite useful and is happy to use them. 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 Marilyn العراقي MD [address] [facility],[address], [place], [address], [employer] [facility] in [facility], 08/09/2022 15:17:53 10/09/2023 text/html She is here for annual exam, is doing well on her oral HRT and elects to continue. Marilyn العراقي MD [address] [facility],[address], [place], [address], [employer] in [facility], 10/09/2023 10:13:39 12/15/2024 text/html She is here for annual exam, is doing well on her oral HRT and elects to continue.She appears to be doing well. Renew HRT. Marilyn العراقي MD [address] [facility],[address], [place], [address], [place] - [facility], 12/15/2024 08:57:47 OBGyn Episode No OBEpisode recorded.
--- OUTSIDE RECORDS SUMMARY | 2025-05-27 19:35 | XMS_ITS | Clinical Summary ---
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 Name Role Phone Unavailable Primary Care Provider Unavailabl e Social History Tobacco Use Types Packs/Day Years Used Date Smoking Tobacco: Never Assessed Comments Unknown Sex and Gender Information Value Date Recorded Sex Assigned at Not on file Legal Sex Female 12:35 AM EST Gender Identity Not on file Sexual Orientation Not on file Plan of Treatment Health Maintenance Due Date Last Done Comments Colorectal Cancer Screening: Colonoscopy 1965 DTaP,Tdap,and Td Vaccines (1 - Tdap) 1984 Hepatitis B Vaccines (1 of 3 - 19+ 3-dose series) 1984 Cervical Cancer Screening: P ap Smear 1986 Pneumococcal Vaccine: 50+ Ye ars (1 of 1 - PCV) 09/26/2015 Zoster Vaccines (1 of 2) 09/26/2015 HIV Screening 06/20/2022 Hepatitis C Screening 06/20/2022 Social Influencers of Health Screening 06/20/2022 Depression Screening 07/08/2024 COVID-19 Vaccine (1 - 2024-2 6 season) 2025 Influenza Vaccine (#1) 2025 Breast Cancer Screening 04/23/2026 04/23/2024 RSV Immunization Adult Patie nts (1 - 1-dose 75+ series) 2040 HIB Vaccines Aged Out No longer eligi ble based on patient's age to complete this topic HPV Vaccines Aged Out No longer eligi ble based on patient's age to complete this topic Hepatitis A Vaccines Aged Out No long er eligible based on patient's age to complete this topic IPV Vaccines Aged Out No longer eligi ble based on patient's age to complete this topic MMR Vaccines Aged Out No longer eligi ble based on patient's age to complete this topic Meningococcal ACWY Vaccine Aged Out N o longer eligible based on patient's age to complete this topic Meningococcal B Vaccine Aged Out No l onger eligible based on patient's age to complete this topic RSV Immunization Patients Un taina 20 months Aged Out No longer eligible b ased on patient's age to complete this topic Varicella Vaccines Aged Out No longer eligible based on patient's age to complete this topic Procedures Procedure Name Priority Date/Time Associated Diagnosis Comments [facility] SCREENING DIGITAL Routine 04/23/2024 2:17 PM EDT Encounter for screening mammogram for malignant neoplasm of breast from Last 3 Months or Most Recently Relevant to Health Maintenance Results * [place] SCREENING DIGITAL (04/23/2024 2:17 PM EDT) Anatomical Region Laterality Modality Mammography 04/23/2024 8:30 AM EDT Narrative 04/23/2024 2:17 PM EDT [facility] Diagnostic Imaging Department [address] [place] [address] Patient: CLAIRE BARBER /Age/Sex: 1965 - 58 - F Unit#: [id number] Location/Status: SPDIMAM/REG CLI Mnemonic/Ordering Site: [facility] Ordering Physician: SERVANDO VUONG MD Carlotta Screening Digital - 04/23/24 - [id number] Report Status:Signed EXAM: SCREENING MAMMOGRAPHY, BILATERAL HISTORY: SCREENING. No additional history. COMPARISON: Initial exam TECHNIQUE: Synthesized CC and MLO projections of each breast. Tomosynthesis of each breast in the CC and MLO projections. ADDITIONAL IMAGING: None Computer-aided detection was employed with the iCAD profound AI 3-D. TISSUE DENSITY: The breasts are heterogeneously dense, which may obscure small masses. (BI-RADS category C) FINDINGS: RIGHT BREAST: No suspicious mass. No suspicious calcification. No distortion. No additional suspicious right breast findings LEFT BREAST: No suspicious mass. No suspicious calcification. No distortion. No additional suspicious left breast findings IMPRESSION: No mammographic evidence of malignancy. A negative mammogram in the presence of a clinically suspicious palpable abnormality does not preclude the possibility of malignancy or alter the indications for biopsy. ASSESSMENT: BI-RADS 1: NEGATIVE RECOMMENDATION(S): 1: Routine screening mammogram BILATERAL in 1 year. Dictating Physician: Jeison MILNER BRET MD Electronically Signed by: Jeison MILNER BRET MD Dic Date/Time: 04/23/24 1416 Sign date/Time: 04/23/24 1417 Procedure Note Taran Milner MD - 05/05/2024 [facility] Diagnostic Imaging Department [address] [place], [place] [address] Patient: CLAIRE BARBER /Age/Sex: 1965 - 58 - F Unit#: [id number] [facility]Ordering Site: [facility] Ordering Physician: SERVANDO VUONG MD [place]otta Screening Digital - 04/23/24 - [id number] Report Status:Signed EXAM: SCREENING MAMMOGRAPHY, BILATERAL HISTORY: SCREENING. No additional history. COMPARISON: Initial exam TECHNIQUE: Synthesized CC and MLO projections of each breast.Tomosynthesis of each breast in the CC and MLO projections. ADDITIONAL IMAGING: None Computer-aided detection was employed with the bubl AI 3-D. TISSUE DENSITY: The breasts are heterogeneously dense, which may obscuresmall masses. (BI-RADS category C) FINDINGS: RIGHT BREAST: No suspicious mass. No suspicious calcification. No distortion. Noadditional suspicious right breast findings LEFT BREAST: No suspicious mass. No suspicious calcification. No distortion. Noadditional suspicious left breast findings IMPRESSION: No mammographic evidence of malignancy. A negative mammogram in the presence of a clinically suspicious palpable abnormality does not preclude the possibility of malignancy or alter the indications for biopsy. ASSESSMENT: BI-RADS 1: NEGATIVE RECOMMENDATION(S): 1: Routine screening mammogram BILATERAL in 1 year. Dictating Physician: Jeison MILNER BRET MD Electronically Signed by: Jeison MILNER BRET MD Dic Date/Time: 04/23/24 1416 Sign date/Time: 04/23/241416 Servando Vuong MD IMG BI PROCEDURES Final Result from Last 3 Months or Most Recently Relevant to Health Maintenance
--- OUTSIDE RECORDS SUMMARY | 2025-05-27 19:35 | XMS_ITS | Patient Health Record ---
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 Name Role Phone CAROLANN SERVANDO Primary Care Provider [phone] Jodi Raza Unavailable [phone] Allergies Allergen (clinical drug ingredient) Drug/Non Drug Allergy documented on EMR Reaction Allergy Type Onset Date Status amlodipine Amlodipine nausea Drug Allergy Activ e Reason For Referral Reason ATI therapy Please evaluate and treat Diagnosis 1 Low back pain, unspe cified (M54.50) Referral Organization [facility] Referring Provider First Name Jodi Referring Provider Last Name Ry Referred Provider Specialty Physical The rapist General Notes Referral hand given to patient.TramaineWilda 10/14/2024 02:16:01 PM > Referral Priority Routine Reason please evaluate and treat Please evaluate and treat Diagnosis 1 Acute midline low ba ck pain, unspecified whether sciatica present (M54.50) Referral Organization [facility] Referring Provider First Name Jodi Referring Provider Last Name Ry Referred Provider Specialty Orthopedic S urgery General Notes Please call the olivia ent to schedule the appointment, Referral has been faxed to [facility] - [phone], Paloma Dudley 10/15/2024 04:26:41 PM > Referral Priority Routine Reason Evaluate and treat Diagnosis 1 Low back pain, unspe cified (M54.50) Referral Organization [facility] Referring Provider First Name SERVANDO Referring Provider Last Name CAROLANN Referring Provider Speciality Internal M edicine Referred Provider Specialty Orthopedic S urgery General Notes Referral faxed to [facility] per pt's request.Tramaine Crystal 03/16/2025 03:42:02 PM > Referral Priority Routine Medications Medication SIG (Take, Route, Frequency, Duration) Notes Start Date End Date Status Azelastine HCl 137 MCG/SPRAY 2 sprays in each nostril Nasally Once a day Active metFORMIN HCl ER 500 MG 1 tablet Orally twice a day; Duration: 90 days 12/03/2024 Active Raven Active predniSONE 20 MG 1 tablet with food o r milk Orally Once a day; Duration: 7 days 10/14/2024 Not-Taking PROzac 10 MG 1 capsule Orally Onc e a day Active cloNIDine HCl 0.1 MG 1 tablet Orally Onc e a day Active Baclofen 5 MG TAKE 1 TABLET BY [facility] THREE TIMES A DAY; Duration: 90 Active tiZANidine HCl 4 MG TAKE 1 TABLET BY [facility] EVERY DAY AT BEDTIME NEEDED; Duration: 90 Active Losartan Potassium 25 MG TAKE 1 TABLET B Y MOUTH EVERY DAY FOR 30 DAYS; Duration: 90 Active Finasteride 5 MG [facility] DAY FOR 90 DAYS; Duration: 90 Active Plaquenil 200 MG 1 TAB Orally twice daily Active Doxycycline Monohydrate 100 MG 1 capsule Orally TWICE DAY Not-Taking Progesterone 200 MG 1 capsule at bedtime Orally Once a day Active Diflucan 150 MG 1 tablet Orally once ; Duration: 1 days 10/28/2023 Not-Taking Estradiol 1 MG 1 tablet Orally Once a day Active Augmentin 875-125 MG 1 tablet Orally kyle ry 12 hrs; Duration: 7 days 10/10/2023 Not-Taking Immunizations Vaccine Route Administration Date Status Comme nts COVID 19 Pfizer Unknown 06/29/2020 Administered COVID 19 Pfizer Unknown 07/20/2020 Administered COVID 19 Pfizer Unknown 05/04/2021 Administered COVID 19 Pfizer Unknown 05/16/2021 Administered COVID Moderna Unknown 02/16/2022 Administered COVID-19 Pfizer Unknown 06/03/2022 Administered Fluzone QD Unknown 06/03/2022 Administered Tdap Unknown 09/01/2009 Administered Social History Tobacco Use: Social History Observation Description Date Details (start date - stop date) Former Smoker NA - NA Tobacco Use/Smoking Question Answer Notes Are you a former smoker How long has it been since you last smoked? > 10 years Alcohol Screen (Audit-C) Question Answer Notes Did you have a drink containing alcohol in the p ast year? 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) Active confirmed Problem Impaired fasting glucose (339744000) Impaired fasting glucose (R73.01) Active confirmed Problem Essential hypertension (70130198) Essential (primary) hypertension (I10) Active confirmed Problem Overweight (013472417) Overweight (BMI 25.0-29.9) (E66.3) Active confirmed Problem Seasonal allergy (222259573) Seasonal allergies (J30.2) Active confirmed Problem Seasonal affective disorder (431400408) Seasonal affective disorder (F33.8) Active confirmed Vital Signs Heart Rate 90 /min 12/03/2024 Temperature 95.9 degrees Fahrenheit 12/03/2024 Blood pressure diastolic 78 mm Hg 12/03/2024 Oximetry 98 % 12/03/2024 Height 70 in 12/03/2024 Blood pressure systolic 126 mm Hg 12/03/2024 Weight 179 lbs 12/03/2024 BMI 25.68 kg/m2 12/03/2024 Encounters Encounter Location Date Provider Diagnosis [address] [address] 05/14/2025 SERVANDO VUONG [address] [address] 10/14/2024 Ghadeer Mazloum Low back pain, unspecified M54.[address] [address] 12/03/2024 SERVANDO VUONG Mixed hyperlipidemia E78.2 ; Cicatricial alopecia, unspecified L66.9 ; Seasonal affective disorder F33.8 ; Essential (primary) hypertension I10 ; Prediabetes R73.03 ; Overweight (BMI 25.0-29.9) E66.3 and Dietary counseling and surveillance Z71.[address] [address] 05/26/2025 SERVANDO VUONG [address] [address] 02/12/2025 SERVANDO VUONG Overweight (BMI 25.0-29.9) E66.[address] [address] 01/18/2025 SERVANDO VUONG Overweight (BMI 25.0-29.9) E66.3 Assessments Encounter Date Diagnosis (ICD Code) Assessment Notes Treatment Notes Treatment Clinical Notes Section Notes 10/14/2024 Low back pain, unspecified (ICD-10 - M54.50) Ms. Chapin is a 59-year-old lady with scarring hair loss and seasonal allergies here for low back pain.Plan as follows Low back pain - Symptoms ongoing for the past a couple of days, she also admits to muscle spasms when she turns that side. 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 Physical examination is unremarkable for tenderness to palpate along the spine nor tenderness along the piriformis muscle, negative FABR test, leg raise test is 90 degree(s) bilateral without limitation. It is possible arthritis. Has referred patient to physical therapy and given a flareup start the patient on prednisone, tizanidine and baclofen. Possible side effects have been discussed. I have also referred patient to orthopedic for further management given ongoing flare up of the SI joint. I have rendered the services for this patient under direct supervision of Dr. Vuong, who did not see the patient but was available upon request 12/03/2024 Mixed hyperlipidemia (ICD-10 - E78.2) Claire is 59 years old pleasant ladywith hypertension, mixed hyperlipidemia, seasonal affective disorder, hair loss is here today for follow-up. She is currently going to physical therapy for right psoas muscle pain and discomfort. Plan is as follows Hypertension. Blood pressure well controlled on losartan 25 mg 1 tablet daily. Low-sodium diet recommended. Mixed hyperlipidemia. Dietary changes and recheck lipid panel in 6 months Prediabetes/ove rwt. She is interested in starting metformin ER 500 which will help with the weight loss and also controlled diabetes. Dietary restrictions discussed. Seasonal affective disorder/insomn ia. She is on Prozac 10 mg along with clonidine 0.1 mg daily at bedtime. Hair loss. She is using finasteride 5 mg daily. Postmenopausal symptoms. She is on hormonal replacement therapy. 12/03/2024 Cicatricial alopecia, unspecified (ICD-10 - L66.9) Claire is 59 years old pleasant ladywith hypertension, mixed hyperlipidemia, seasonal affective disorder, hair loss is here today for follow-up. She is currently going to physical therapy for right psoas muscle pain and discomfort. Plan is as follows Hypertension. Blood pressure well controlled on losartan 25 mg 1 tablet daily. Low-sodium diet recommended. Mixed hyperlipidemia. Dietary changes and recheck lipid panel in 6 months Prediabetes/ove t. She is interested in starting metformin ER 500 which will help with the weight loss and also controlled diabetes. Dietary restrictions discussed. Seasonal affective disorder/insomn ia. She is on Prozac 10 mg along with clonidine 0.1 mg daily at bedtime. Hair loss. She is using finasteride 5 mg daily. Postmenopausal symptoms. She is on hormonal replacement therapy. 01/18/2025 Overweight (BMI 25.0-29.9) (ICD-10 - E66.3) 02/12/2025 Overweight (BMI 25.0-29.9) (ICD-10 - E66.3) 12/03/2024 Seasonal affective disorder (ICD-10 - F33.8) Claire is 59 years old pleasant ladywith hypertension, mixed hyperlipidemia, seasonal affective disorder, hair loss is here today for follow-up. She is currently going to physical therapy for right psoas muscle pain and discomfort. Plan is as follows Hypertension. Blood pressure well controlled on losartan 25 mg 1 tablet daily. Low-sodium diet recommended. Mixed hyperlipidemia. Dietary changes and recheck lipid panel in 6 months Prediabetes/ove rwt. She is interested in starting metformin ER 500 which will help with the weight loss and also controlled diabetes. Dietary restrictions discussed. Seasonal affective disorder/insomn ia. She is on Prozac 10 mg along with clonidine 0.1 mg daily at bedtime. Hair loss. She is using finasteride 5 mg daily. Postmenopausal symptoms. She is on hormonal replacement therapy. 12/03/2024 Essential (primary) hypertension (ICD-10 - I10) Claire is 59 years old pleasant ladywith hypertension, mixed hyperlipidemia, seasonal affective disorder, hair loss is here today for follow-up. She is currently going to physical therapy for right psoas muscle pain and discomfort. Plan is as follows Hypertension. Blood pressure well controlled on losartan 25 mg 1 tablet daily. Low-sodium diet recommended. Mixed hyperlipidemia. Dietary changes and recheck lipid panel in 6 months Prediabetes/ove rweight. She is interested in starting metformin ER 500 which will help with the weight loss and also controlled diabetes. Dietary restrictions discussed. Seasonal affective disorder/insomn ia. She is on Prozac 10 mg along with clonidine 0.1 mg daily at bedtime. Hair loss. She is using finasteride 5 mg daily. Postmenopausal symptoms. She is on hormonal replacement therapy. 12/03/2024 Prediabetes (ICD-10 - R73.03) Claire is 59 years old pleasant ladywith hypertension, mixed hyperlipidemia, seasonal affective disorder, hair loss is here today for follow-up. She is currently going to physical therapy for right psoas muscle pain and discomfort. Plan is as follows Hypertension. Blood pressure well controlled on losartan 25 mg 1 tablet daily. Low-sodium diet recommended. Mixed hyperlipidemia. Dietary changes and recheck lipid panel in 6 months Prediabetes/ove rweight. She is interested in starting metformin ER 500 which will help with the weight loss and also controlled diabetes. Dietary restrictions discussed. Seasonal affective disorder/insomn ia. She is on Prozac 10 mg along with clonidine 0.1 mg daily at bedtime. Hair loss. She is using finasteride 5 mg daily. Postmenopausal symptoms. She is on hormonal replacement therapy. 12/03/2024 Overweight (BMI 25.0-29.9) (ICD-10 - E66.3) Claire is 59 years old pleasant ladywith hypertension, mixed hyperlipidemia, seasonal affective disorder, hair loss is here today for follow-up. She is currently going to physical therapy for right psoas muscle pain and discomfort. Plan is as follows Hypertension. Blood pressure well controlled on losartan 25 mg 1 tablet daily. Low-sodium diet recommended. Mixed hyperlipidemia. Dietary changes and recheck lipid panel in 6 months Prediabetes/ove rwt. She is interested in starting metformin ER 500 which will help with the weight loss and also controlled diabetes. Dietary restrictions discussed. Seasonal affective disorder/insomn ia. She is on Prozac 10 mg along with clonidine 0.1 mg daily at bedtime. Hair loss. She is using finasteride 5 mg daily. Postmenopausal symptoms. She is on hormonal replacement therapy. 12/03/2024 Dietary counseling and surveillance (ICD-10 - Z71.3) Claire is 59 years old pleasant ladywith hypertension, mixed hyperlipidemia, seasonal affective disorder, hair loss is here today for follow-up. She is currently going to physical therapy for right psoas muscle pain and discomfort. Plan is as follows Hypertension. Blood pressure well controlled on losartan 25 mg 1 tablet daily. Low-sodium diet recommended. Mixed hyperlipidemia. Dietary changes and recheck lipid panel in 6 months Prediabetes/ove rwt. She is interested in starting metformin ER 500 which will help with the weight loss and also controlled diabetes. Dietary restrictions discussed. Seasonal affective disorder/insomn ia. She is on Prozac 10 mg along with clonidine 0.1 mg daily at bedtime. Hair loss. She is using finasteride 5 mg daily. Postmenopausal symptoms. She is on hormonal replacement therapy. Plan Of Treatment Pending Test Test Name Order Date 25OH VITAMIN D 12/10/2019 25OH VITAMIN D 10/08/2022 CBC (COMPLETE BLOOD COUNT) 12/10/2019 COMPREHENSIVE METABOLIC PANEL 10/08/2022 COMPREHENSIVE METABOLIC PANEL 12/10/2019 HEMOGLOBIN A1C 10/08/2022 HEMOGLOBIN A1C WITH EST GLUCOSE 12/10/19 20 LIPID PANEL 12/10/2019 LIPID PANEL 10/08/2022 Future Test Test Name Order Date Hemoglobin [id number] 12/03/2024 Albumin/Creatinine Ratio,[id number] Lipid [id number] 12/03/2024 Comp. Metabolic Panel [id number] 2024 Next Appt Details Provider Name:Madisyn Rajeshkesha, 1 08/10/2024 02:30:00 PM, [address] [place] [address], [phone], Insurance Providers Payer Name Payer Address Payer Phone Subscriber Number Group Number Insured Name Patient Relationship to Insured Coverage Start Date Coverage End Date [facility] [address] [place], [place] [phone] [id number] Isabella baileyClaire Self - patient is the insured 4 Medical (General) History Medical History History ICD Code hair loss , Dr. Cortez prediabetes Borderline dyslipidemia Vitamin D deficiency Family history of rectal cancer Personal history of COVID-19 leaky vessel, sees ophthalmology Surgical History Surgery Date(Month/Year) section herniated disc repair
--- OUTSIDE RECORDS SUMMARY | 2025-05-27 19:36 | XMS_ITS | Data Portability ---
Author Organization [facility], Main Office Address [address] [place] [address] Care Team Providers Care Industrial Cook Name Role Phone KADE HAIR It Trainee TOMASA GARCIA Eye Physician FABIAN BUENO Motorcycle Service Technician ASHISH FORTE OTHER Assessment Encounter Date Assessment Date Assessment LastModified by Organization Details LastModified Time 06/24/2018 06/24/2018 Patient has a list of labs she would like to have done. I did explain that i typically do not order or interpret some of these, and that they may not all be covered. 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 otherwise doing well, losing weight, taking supplements. [email or web address] Not available 06/24/2018 12:36:14 Plan of Treatment Reminders Order Date Submit Date Provider Last Modified By Organization Details Last Modified Time Details Appointments None recorded . Lab PPD (purifie d protein derivati ve), skin test 2018 019 [email or web address] In-Office Order, Internal Use Only DO Not Attach Compendium DO Not Attach Compendium, Do Not Delete/merge, [id number] 9 10:30:24 lipid panel, serum 2017 018 [facility], [address] [facility], [place], [address], 8 09:54:13 unlisted lab - vitamin B6 level 2017 018 [facility], [address] [place], [address], 8 09:31:23 glycohem oglobin, total, blood 2017 [facility], [address] [place] [address], [address], 8 11:52:35 CMP, serum or plasma 2017 018 [employer] [facility], [address] [place] [address], [address], 8 09:54:09 iron, serum 2017 018 [facility], [address] [place] [address], [address], 8 09:30:26 vitamin B12, serum 2017 018 [facility], [address] [place] [address], [address], 8 09:30:26 folate, serum 2017 018 [facility], [address] [place] [address], [address], 8 09:30:26 ferritin , serum or plasma 2017 018 [facility], [address] [place] [address], [address], 8 09:30:26 retic count, blood 2017 [facility], [address] [place] [address], [address], 8 09:30:27 CBC w/ auto diff 2017 [employer] [facility], [address] [place] [address], [address], 8 09:39:19 magnesiu m, RBC 2017 018 [facility], [address] [place] [address], 139[address], 9 19:22:13 phosphor us, serum or plasma 2017 018 [facility], [address] [place] [address], [address], 8 09:54:12 vitamin D, 25-hydro xy, total, serum 2017 018 [facility], [address] [place] [address], 39[address], 8 10:02:10 ESR (erythro cyte sediment ation rate), blood 2017 018 [facility], [address] [place] [address], [address], 8 10:04:33 C-reacti ve protein, quantita tive, serum or plasma 2017 018 [facility], [address] [place] [address], [address], 8 09:54:15 uric acid, serum or plasma 2017 018 [facility], [address] [place] [address], 9[address], 8 09:54:11 lyme disease C6 peptide Ab, serum 2017 018 [facility], [address] [place] [address], [address], 9 08:04:52 unlisted lab - mthfr profile 2017 018 [facility], [address] [place] [address], [address], 8 16:18:49 homocyst eine, serum or plasma 2017 018 [facility], [address] [place] [address], 35[address], 8 10:17:01 cortisol , serum or plasma 2017 018 [facility], [address] [place], [address], 8 10:04:13 dhea, unconjug ated, serum 2017 018 [facility], [address] [place], [address], 9 13:38:45 glycohem oglobin, total, blood 2017 018 [facility], [address] [place], [address], 8 11:47:30 BMP, serum or plasma [address] [place] [facility], [address] [place], [address], 8 11:47:30 microalb umin, urine 2017 018 [facility], [address] [place], [address], 8 11:05:21 BMP, serum or plasma 2016 017 abigby Not available 8 10:23:58 microalb umin, urine 2016 017 ATHE[facility] Not available 7 12:05:[address] referral - pt needs for colonosc opy 2019/ but may need EGD sooner due to severity of sx/ pt eliminat ed all reflux triggers and still intermit tent sx 2017 018 [facility] Kindra Kwon MD, [address] [facility] [address], [place], [address], 8 09:31:50 Procedures None recorded . Surgeries None recorded . Imaging None recorded . Medication Orders Tubersol 5 tub. unit/0.1 mL intrader mal injectio n solution 2018 019 [email or web address] Not available 9 10:30:24 clonidin e HCl 0.1 mg tablet 2017 018 [email or web address] [facility]/Pharmacy #1130, [phone] [place], [address], 8 10:51:07 codeine 10 mg-guaif enesin 100 mg/5 mL oral liquid 2017 018 [facility] [phone] [place], [address], 8 10:28:51 azithrom ycin 500 mg tablet 2017 018 [facility] [phone] [place], [address], 8 10:28:40 lisinopr il 10 mg tablet 2016 017 [email or web address] [facility]/Pharmacy #1130, [phone] [place], [address], 8 11:12:45 Patient TargetsNo targets recorded. Patient Instructions Encounter Date Encounter Id Patient Instructions Last Modified By Organization Details Last Modified Time 09/27/2017 [id number] cough: care instructions [email or web address] Not available 09/27/2017 13:25:03 gastroesophageal reflux disease (GERD): care instructions [email or web address] Not available 09/27/2017 13:25:03 ear infection (otitis media): care instructions [email or web address] Not available 09/27/2017 13:25:03 call or return f or worsening or concerns. [email or web address] Not available 09/27/2017 11:30:47 .............. I have reviewed the note and agree with the assessment and plan of care. [email or web address] Not available 09/27/2017 16:36:22 06/24/2018 [id number] call or return f or worsening or concerns. [email or web address] Not available 06/24/2018 11:14:22 Reason for Referral Eye Physician Referral for Gastroesophageal reflux disease pt needs for colonoscopy 2019/ but may need EGD sooner due to severity of sx/ pt eliminated all reflux triggers and still intermittent sx Referring Physician: Yoselin Cunningham, Internal Medicine, Encounter Date: 11/26/2017 Results Created Date Observation Date Name Description Value Unit Range Abnormal Flag Note LastModifiedBy Organization Detail LastModifiedTime 05/31/20 17 05/31/2017 ALT (braydon ine amino trans feras e), serum or plasm a ALT 26 U/L (0-33) Not Available [facility] (Centralized Electronic Ordering - All Locations) Patient Can Go To The Location Of Their Choice, 05/31/2017 15:45:55 05/31/20 17 05/31/2017 AST/S GOT (aspa rtate amino trans feras e), serum or plasm a AST 19 U/L (0-32) Not Available [facility] (Centralized Electronic Ordering - All Locations) Patient Can Go To The Location Of Their Choice, 05/31/2017 15:45:56 05/31/20 17 05/31/2017 BMP, serum or plasm a glucose 110 mg/dL (70-99 ) high Not Available [facility] (Centralized Electronic Ordering - All Locations) Patient Can Go To The Location Of Their Choice, 05/31/2017 15:45:57 05/31/20 17 05/31/2017 BMP, serum or plasm a BUN 16 mg/dL (6-20) Not Available [facility] (Centralized Electronic Ordering - All Locations) Patient Can Go To The Location Of Their Choice, 05/31/2017 15:45:57 05/31/20 17 05/31/2017 BMP, serum or plasm a creatinine 1.1 mg/dL (0.5-1 .0) high Not Available [facility] (Centralized Electronic Ordering - All Locations) Patient Can Go To The Location Of Their Choice, 05/31/2017 15:45:57 05/31/20 17 05/31/2017 BMP, serum or plasm a sodium 141 mmol/ L (133-1 45) Not Available [facility] (Centralized Electronic Ordering - All Locations) Patient Can Go To The Location Of Their Choice, 05/31/2017 15:45:57 05/31/20 17 05/31/2017 BMP, serum or plasm a potassium 4.1 mmol/ L (3.6-5 .2) Not Available [facility] (Centralized Electronic Ordering - All Locations) Patient Can Go To The Location Of Their Choice, 05/31/2017 15:45:57 05/31/20 17 05/31/2017 BMP, serum or plasm a chloride 100 mmol/ L (98-10 7) Not Available [facility] (Centralized Electronic Ordering - All Locations) Patient Can Go To The Location Of Their Choice, 05/31/2017 15:45:57 05/31/20 17 05/31/2017 BMP, serum or plasm a bicarbonate 25 mmol/ L (22-29 ) Not Available [facility] (Centralized Electronic Ordering - All Locations) Patient Can Go To The Location Of Their Choice, 05/31/2017 15:45:57 05/31/20 17 05/31/2017 BMP, serum or plasm a anion gap 16 (4-17) Not Available [facility] (Centralized Electronic Ordering - All Locations) Patient Can Go To The Location Of Their Choice, 05/31/2017 15:45:57 05/31/20 17 05/31/2017 BMP, serum or plasm a calcium 9.4 mg/dL (8.6-1 0.5) Not Available [facility] (Centralized Electronic Ordering - All Locations) Patient Can Go To The Location Of Their Choice, 05/31/2017 15:45:57 05/31/20 17 05/31/2017 BMP, serum or plasm a est GFR non 58 mL/mi n/1.7 3_M2 The CKD-E PI creat inine equat ion has not been valid ated in child mulu (<18 years ), pregn ant women , in some racia l or ethni c subgr oups other than Cauca sians and Afric an Ameri cans. Not Available [facility] (Centralized Electronic Ordering - All Locations) Patient Can Go To The Location Of Their Choice, 05/31/2017 15:45:57 05/31/20 17 05/31/2017 BMP, serum or plasm a est GFR 67 mL/mi n/1.7 3_M2 The CKD-E PI creat inine equat ion has not been valid ated in child mulu (<18 years ), pregn ant women , in some racia l or ethni c subgr oups other than Danielaa albert and Afric an Ameri cans. Not Available [facility] (Centralized Electronic Ordering - All Locations) Patient Can Go To The Location Of Their Choice, [id number] 05/31/2017 15:45:57 05/31/20 17 05/31/2017 lipid panel , serum cholesterol, total 227 mg/dL (<200) high Not Available [facility] (Centralized Electronic Ordering - All Locations) Patient Can Go To The Location Of Their Choice, [id number] 05/31/2017 15:45:58 05/31/20 17 05/31/2017 lipid panel , serum triglyceride 86 mg/dL (<150) Not Available [facility] (Centralized Electronic Ordering - All Locations) Patient Can Go To The Location Of Their Choice, [id number] 05/31/2017 15:45:58 05/31/20 17 05/31/2017 lipid panel , serum HDL chol 71 mg/dL (>39) Not Available [facility] (Centralized Electronic Ordering - All Locations) Patient Can Go To The Location Of Their Choice, [id number] 05/31/2017 15:45:58 05/31/20 17 05/31/2017 lipid panel , serum LDL cholesterol, calculated 139 mg/dL (0-130 ) high Not Available [facility] (Centralized Electronic Ordering - All Locations) Patient Can Go To The Location Of Their Choice, [id number] 05/31/2017 15:45:58 05/31/20 17 05/31/2017 lipid panel , serum non HDL cholesterol (calc) 156 mg/dL (<160) Not Available [facility] (Centralized Electronic Ordering - All Locations) Patient Can Go To The Location Of Their Choice, 05/31/2017 15:45:58 07/07/20 18 07/07/2018 vitam in B6 level vitamin B6 level TNP Testi ng not perfo rmed Reaso n: NOT PROTE CTED FROM LIGHT Not Available [facility] [address] [facility], [place], [address], 07/07/2018 09:31:23 07/07/20 18 07/07/2018 CBC w/ auto diff comments [facility] [address] [facility] [id number] Medic al Direc tor - Allis on James monique MD Not Available [facility] [address] [place], [address], 07/07/2018 09:39:19 07/07/20 18 07/07/2018 CBC w/ auto diff WBC 5.6 x10-3 /uL 4.8-10 .8 Not Available [facility] [address] [place], [address], 07/07/2018 09:39:19 07/07/20 18 07/07/2018 CBC w/ auto diff RBC 4.9 x10-6 /uL 3.8-4. 8 high Not Available [facility] [address] [place], [address], 07/07/2018 09:39:19 07/07/20 18 07/07/2018 CBC w/ auto diff hemoglobin 14.1 g/dL 11.5-1 6.0 Not Available [facility] [address] [place], [address], 07/07/2018 09:39:19 07/07/20 18 07/07/2018 CBC w/ auto diff hematocrit 42.6 % 35-47 Not Available [facility] [address] [place], [address], 07/07/2018 09:39:19 07/07/20 18 07/07/2018 CBC w/ auto diff MCV 86.4 fL 79-98 Not Available [facility] [address] [place], [address], 07/07/2018 09:39:19 07/07/20 18 07/07/2018 CBC w/ auto diff MCH 28.6 pg 27-32 Not Available [facility] [address] [place], [address], 07/07/2018 09:39:19 07/07/20 18 07/07/2018 CBC w/ auto diff MCHC 33.1 g/dL 32-37 Not Available [facility] [address] [place], [address], 07/07/2018 09:39:19 07/07/20 18 07/07/2018 CBC w/ auto diff RDW 12.4 % 11-15 Not Available [facility] [address] [place], [address], 07/07/2018 09:39:19 07/07/20 18 07/07/2018 CBC w/ auto diff plt count 220 x10-3 /uL 130-40 0 Not Available [facility] [address] [place], [address], 07/07/2018 09:39:19 07/07/20 18 07/07/2018 CBC w/ auto diff mean platelet volume 9.2 fL 7-11 Not Available [facility] [address] [place], [address], 07/07/2018 09:39:19 07/07/20 18 07/07/2018 CBC w/ auto diff NRBC % auto diff 0.0 % <1 Not Available [facility] [address] [place], [address], 07/07/2018 09:39:19 07/07/20 18 07/07/2018 CBC w/ auto diff neut % 68.3 % Not Available [facility] [address] [place], [address], 07/07/2018 09:39:19 07/07/20 18 07/07/2018 CBC w/ auto diff lymph % 19.4 % Not Available [facility] [address] [place], [address], 07/07/2018 09:39:19 07/07/20 18 07/07/2018 CBC w/ auto diff mono % 10.0 % Not Available [facility] [address] [place], [address], 07/07/2018 09:39:19 07/07/20 18 07/07/2018 CBC w/ auto diff eos % 1.6 % Not Available [facility] [address] [place], [address], 07/07/2018 09:39:19 07/07/20 18 07/07/2018 CBC w/ auto diff baso % 0.5 % Not Available [facility] [address] [place], [address], 07/07/2018 09:39:19 07/07/20 18 07/07/2018 CBC w/ auto diff immature granulocytes % 0.2 % Not Available [facility] [address] [place], [address], 07/07/2018 09:39:19 07/07/20 18 07/07/2018 CBC w/ auto diff NRBC # auto diff 0.00 x10-3 /uL <0.1 Not Available [facility] [address] [place], [address], 07/07/2018 09:39:19 07/07/20 18 07/07/2018 CBC w/ auto diff absolute neut 3.84 x10-3 /uL 1.5-7. 0 Not Available [facility] [address] [place], [address], 07/07/2018 09:39:19 07/07/20 18 07/07/2018 CBC w/ auto diff lymph # 1.09 x10-3 /uL 1-5.0 Not Available [facility] [address] [place], [address], 07/07/2018 09:39:19 07/07/20 18 07/07/2018 CBC w/ auto diff mono # 0.56 x10-3 /uL 0.2-1. 0 Not Available [facility] [address] [place], [address], 07/07/2018 09:39:19 07/07/20 18 07/07/2018 CBC w/ auto diff eos # 0.09 x10-3 /uL 0-0.5 Not Available [facility] [address] [place], [address], 07/07/2018 09:39:19 07/07/20 18 07/07/2018 CBC w/ auto diff baso # 0.03 x10-3 /uL 0-0.2 Not Available [facility] [address] [place], [address], 07/07/2018 09:39:19 07/07/20 18 07/07/2018 CBC w/ auto diff immature granulocytes # 0.01 x10-3 /uL 0-0.03 Not Available [facility] [address] [place] [address], [address], 07/07/2018 09:39:19 07/07/20 18 07/07/2018 retic count , blood comments [facility], a [facility] r of [facility] [address] [place] [address] Medic al Dire tor - Allis on James monique MD Not Available [facility] [address] [place] [address], [address], 07/07/2018 09:39:22 07/07/20 18 07/07/2018 retic count , blood # reticulocyte count 0.05 x10-6 /uL 0.03-0 .09 Not Available [facility] [address] [place] [address], [address], 07/07/2018 09:39:22 07/07/20 18 07/07/2018 retic count , blood % reticulocyte count 1.0 % 0.7-1. 7 Not Available [facility] [address] [place] [address], [address], 07/07/2018 09:39:22 07/07/20 18 07/07/2018 retic count , blood immature retic fraction 5.1 % 2.3-15 .9 Not Available [facility] [address] [place] [address], [address], 07/07/2018 09:39:22 07/07/20 18 07/07/2018 retic count , blood retic HGB equivalent 33.9 pg >29 Not Available [facility] [address] [place] [address], [address], 07/07/2018 09:39:22 07/07/20 18 07/07/2018 CMP, serum or plasm a comments [facility], a [facility] of [facility] [address] [place] [address] Medic al Direc tor - Allis on James monique MD Not Available [facility] [address] [place], [address], 07/07/2018 09:54:08 07/07/20 18 07/07/2018 CMP, serum or plasm a glucose 92 mg/dL 70-100 Refer ence range appli cable to fasti ng speci mens only Not Available [facility] [address] [place] [address], [address], 07/07/2018 09:54:08 07/07/20 18 07/07/2018 CMP, serum or plasm a BUN 18 mg/dL 5-25 Not Available [facility] [address] [place] [address], [address], 07/07/2018 09:54:08 07/07/20 18 07/07/2018 CMP, serum or plasm a creat 0.79 mg/dL 0.5-1. 1 Not Available [facility] [address] [place] [address], [address], 07/07/2018 09:54:08 07/07/20 18 07/07/2018 CMP, serum or plasm a glomerular filtration rate > 60 If patie nt is Afric an-Am maryann n, multi ply resul t by 1.21 Chron ic Kidne y Disea se: < 60 ml/mi n/1.7 3 squar e meter s Kidne y Failu re: < 15 ml/mi n/1.7 3 squar e meter s Not Available [facility] [address] [place], [address], 07/07/2018 09:54:08 07/07/20 18 07/07/2018 CMP, serum or plasm a sodium 138 mmol/ L 133-14 5 Not Available [facility] [address] [place] [address], [address], 07/07/2018 09:54:08 07/07/20 18 07/07/2018 CMP, serum or plasm a potassium 3.7 mmol/ L 3.5-5. 5 Not Available [facility] [address] [place] [address], [address], 07/07/2018 09:54:08 07/07/20 18 07/07/2018 CMP, serum or plasm a chloride 100 mmol/ L 96-110 Not Available [facility] [address] [place], [address], 07/07/2018 09:54:08 07/07/20 18 07/07/2018 CMP, serum or plasm a CO2 29 mmol/ L 21-32 Not Available [facility] [address] [place], [address], 07/07/2018 09:54:08 07/07/20 18 07/07/2018 CMP, serum or plasm a anion gap 9 3-11 Not Available [facility] [address] [place], [address], 07/07/2018 09:54:08 07/07/20 18 07/07/2018 CMP, serum or plasm a calcium 8.4 mg/dL 8.5-10 .5 low Not Available [facility] [address] [place], [address], 07/07/2018 09:54:08 07/07/20 18 07/07/2018 CMP, serum or plasm a total protein 6.9 g/dL 6.0-8. 0 Not Available [facility] [address] [place], [address], 07/07/2018 09:54:08 07/07/20 18 07/07/2018 CMP, serum or plasm a albumin 4.1 g/dL 3.2-5. 0 Not Available [facility] [address] [place], [address], 07/07/2018 09:54:08 07/07/20 18 07/07/2018 CMP, serum or plasm a bili,total 0.6 mg/dL 0.0-1. 4 Not Available [facility] [address] [place], [address], 07/07/2018 09:54:08 07/07/20 18 07/07/2018 CMP, serum or plasm a SGOT 17 U/L 10-42 Not Available [facility] [address] [place], [address], 07/07/2018 09:54:08 07/07/20 18 07/07/2018 CMP, serum or plasm a SGPT 25 U/L 10-60 Not Available [facility] [address] [place], [address], 07/07/2018 09:54:08 07/07/20 18 07/07/2018 CMP, serum or plasm a alk phos 58 U/L 42-121 Not Available [facility] [address] [place], [address], 07/07/2018 09:54:08 07/07/20 18 07/07/2018 uric acid, serum or plasm a comments [facility], a [facility] r of [employer] [place] [address] Medic al Direc tor - Allis on James monique MD Not Available [facility] [address] [place], [address], 07/07/2018 09:54:11 07/07/20 18 07/07/2018 uric acid, serum or plasm a uric acid 4.2 mg/dL 3.1-7. 8 Not Available [facility] [address] [place], [address], 07/07/2018 09:54:11 07/07/20 18 07/07/2018 phosp horus , serum or plasm a comments [facility] [place] mem[facility] r of [employer] [place] [address] Medic al Direc tor - Allis on James monique MD Not Available [facility] [address] [place], [address], 07/07/2018 09:54:12 07/07/20 18 07/07/2018 phosp horus , serum or plasm a phosphorus 4.0 mg/dL 2.5-4. 5 Not Available [facility] [address] [place], [address], 07/07/2018 09:54:12 07/07/20 18 07/07/2018 lipid panel , serum comments [facility], [facility] [address] [facility] [address] Medic al Direc tor - Allis on James monique MD Not Available [facility] [address] [place] [address], [address], 07/07/2018 09:54:13 07/07/20 18 07/07/2018 lipid panel , serum cholesterol 192 mg/dL 0-200 Not Available [facility] [address] [place] [address], [address], 07/07/2018 09:54:13 07/07/20 18 07/07/2018 lipid panel , serum triglyceride s 142 mg/dL 0-150 Not Available [facility] [address] [place] [address], [address], 07/07/2018 09:54:13 07/07/20 18 07/07/2018 lipid panel , serum HDL cholesterol 53 mg/dL >40 Not Available [facility] [address] [place] [address], [address], 07/07/2018 09:54:13 07/07/20 18 07/07/2018 lipid panel , serum LDL calculated 111 mg/dL 0-100 high Not Available [facility] [address] [place] [address], [address], 07/07/2018 09:54:13 07/07/20 18 07/07/2018 lipid panel , serum TC-HDLC ratio 3.6 mg/dL 0-4.4 Not Available [facility] [address] [place] [address], [address], 07/07/2018 09:54:13 07/07/20 18 07/07/2018 iron, serum comments [facility], [facility] [address] [facility] [address] Medic al Direc tor - Allis on James monique MD Not Available [facility] [address] [place] [address], [address], 07/07/2018 09:54:15 07/07/20 18 07/07/2018 iron, serum iron (fe) 75 ug/dL 40-150 Not Available [facility] [address] [place] [address], [address], 07/07/2018 09:54:15 07/07/20 18 07/07/2018 C-madalyn ctive prote in, quant itati ve, serum or plasm a comments [facility], a [facility] of [employer] [address] [place] [address] Medic al Direc tor - Allis on James monique MD Not Available [facility] [address] [place] [address], [address], 07/07/2018 09:54:15 07/07/20 18 07/07/2018 C-madalyn ctive prote in, quant itati ve, serum or plasm a C-reactive protein < 0.29 mg/dL <0.5 Not Available [facility] [address] [place] [address], [address], 07/07/2018 09:54:15 07/07/20 18 07/07/2018 vitam in D, 25-hy droxy , total , serum comments [facility], a [facility] of [employer] [address] [place] [address] Medic al Direc tor - Allis on James monique MD Not Available [facility] [address] [place] [address], [address], 07/07/2018 10:02:10 07/07/20 18 07/07/2018 vitam in D, 25-hy droxy , total , serum vitamin D, 25-hydroxy 36 NG/mL 30-80 Not Available [facility] [address] [place] [address], [address], 07/07/2018 10:02:10 07/07/20 18 07/07/2018 corti prateek, serum or plasm a comments [facility], a [facility] of [facility] [address] [place] [address] Medic al Direc tor - Allis on James monique MD Not Available [facility] [address] [place] [address], [address], 07/07/2018 10:04:13 07/07/20 18 07/07/2018 corti prateek, serum or plasm a cortisol 15.9 ug/dL CORTI PRATEEK REFER ENCE RANGE 8 AM SPEC: 5.0 - 23.0 4 PM SPEC: 3.0 - 16.0 8 PM SPEC: <5.0 Not Available [facility] [address] [place] [address], [address], 07/07/2018 10:04:13 07/07/20 18 07/07/2018 ESR (eryt hrocy te sedim entat ion rate) , blood comments [facility], a [facility] of [employer] [employer] [place] [address] Medic al Direc tor - Allis on James monique MD Not Available [facility] [address] [place] [address], [address], 07/07/2018 10:04:33 07/07/20 18 07/07/2018 ESR (eryt hrocy te sedim entat ion rate) , blood ESR 3 mm/HR 0-30 Not Available [facility] [address] [place] [address], [address], 07/07/2018 10:04:33 07/07/20 18 07/07/2018 homoc ystei ne, serum or plasm a comments [facility], a mem[facility] r of [facility] [address] [place] [address] Medic al Direc tor - Allis on James monique MD Not Available [facility] [address] [place] [address], [address], 07/07/2018 10:17:01 07/07/20 18 07/07/2018 homoc ystei ne, serum or plasm a homocysteine 9.4 umol/ L 3.2-10 .7 Not Available [facility] [address] [place], [address], 07/07/2018 10:17:01 07/07/20 18 07/07/2018 B12 and folat e profi le comments [facility] Labor atori es, a [facility] [address] [place] [address] Medic al Direc tor - Allis on James monique MD Not Available [facility] [address] [place] [address], [address], 07/07/2018 10:17:05 07/07/20 18 07/07/2018 B12 and folat e profi le folate > 20.0 NG/mL 2.8-17 .0 high Not Available [facility] [address] [place] [address], [address], 07/07/2018 10:17:05 07/07/20 18 07/07/2018 B12 and folat e profi le vitamin B12 819 pg/mL 250-90 0 Not Available [facility] [address] [place] [address], [address]76, 07/07/2018 10:17:05 07/07/20 18 07/07/2018 barron tin, serum or plasm a comments [facility], a [facility] [address] [place] [address] Medic al Direc tor - Allis on James monique MD Not Available [facility] [address] [place] [address], [address], 07/07/2018 10:17:06 07/07/20 18 07/07/2018 barron tin, serum or plasm a ferritin 53 NG/mL 8-252 Not Available [facility] [address] [place] [address], [address], 07/07/2018 10:17:06 07/07/20 18 07/07/2018 glyco hemog lobin , total , blood comments [facility], a [facility] [address] [place] [address] Medic al Direc tor - Allis on James monique MD Not Available [facility] [address] [place], [address], 07/07/2018 11:52:35 07/07/20 18 07/07/2018 glyco hemog lobin , total , blood glycated hemoglobin A1C 5.9 % <6.5 Not Available [facility] [address] [place], [address], 07/07/2018 11:52:35 07/07/20 18 07/07/2018 glyco hemog lobin , total , blood estimated average glucose 123 mg/dL Not Available [facility] [address] [place], [address], 07/07/2018 11:52:35 07/07/20 18 07/07/2018 lyme disea se igg+i gm Ab, serum comments [facility] es, melonie dunnbe r of [facility] [address] [facility] [place] [address] Medic al Direc tor - Allis on James monique MD Not Available [facility] [address] [place] [address], [address], 07/07/2018 14:11:53 07/07/20 18 07/07/2018 lyme disea se igg+i gm Ab, serum lyme disease antibodies NEGATI VE negati ve Not Available [facility] [address] [place] [address], [address], 07/07/2018 14:11:53 07/07/20 18 07/07/2018 mthfr profi le mth folate reductase DNA TNP MTHFR NOT PERFO RMED AT THIS TIME. SAQIB APONTE HAS HNE INSUR ANCE THAT REQUI RES PRIOR AUTHO JESICA STAUFFER) FOR GENNARO IC TEST CPT 42784 . OFFIC E NOTIF IED 07/07. PLEAS E CONTA CT MALATHI AT [phone] IF YOU NEED FURTH ER FABIÁN TANCE . Not Available [facility] [address] [place] [address], [address], 07/07/2018 16:18:49 07/07/20 18 07/07/2018 dhea, uncon jugat ed, serum dehydroepian drosterone 229 NG/dL Adult Refer ence Range s Adult Femal es, Pre-M enopa usal Mid Folli cular : 385-1 143 ng/dL Surge : 345-2 030 ng/dL Mid Lutea l: 414-1 295 ng/dL This test was devel oped and its tyrone tical perfo rmanc e ramon cteri stics have been deter mined by [facility] . It has not been clear ed or appro bailey by FDA. This assay has been valid ated pursu ant to the CLIA regul ation s and is used for clini delores purpo ses. Test Perfo rmed at: [facility] [address] [place] [place] [address] Lilibeth mulligan MD, PhD, KATHERINE Not Available [facility] [address] [place], [address], 07/12/2018 13:38:45 07/07/20 18 07/07/2018 vitam in B6 level vitamin B6 level 54 ug/L 5-50 abnormal This test was devel oped and the perfo rmanc e ramon cteri stics deter mined by [facility] . It has not been clear ed or appro bailey by the FDA. The labor atory is regul ated under CLIA as quali fied to perfo rm high- compl exity testi ng. This test is used for patie nt testi ng purpo ses. It shoul d not be regar ded as inves tigat ional or for resea [facility]. Test perfo rmed at [facility] , [address], [place] [address] [phone] Willi tova Bell MD - Medic al Direc tor Not Available [facility] [address] [place], [address], 07/14/2018 07:39:11 07/07/20 18 07/07/2018 magne sium, RBC magnesium, RBC 5.3 mg/dL 4.0-6. 4 This test was devel opbrian and its tyrone tical perfo rmanc e ramon cteri stics have been deter mined by [facility] Skyleri natalie Patel cia. It has not been clear ed or appro bailey by the US Food and Drug Admin istra tion. This assay has been valid ated pursu ant to the CLIA regul ation s and is used for clini delores purpo ses. [facility] natalie anaya M.D., Ph.D. , Labor atory [facility] [address] [place] [address], [place] [address] CLIA [id number] Not Available [facility] [address] [place] [address], [address], 07/14/2018 19:22:13 Result Notes None recorded. 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 Ashish Forte, [facility] [address], [facility] [place], [address] , [facility] 6 14:39:17 Post-tra umatic stress disorder 07256542 Active Wendybarb oneil, [facility] 7 11:45:56 Ankle pain 289616793 Completed 11/26/2016 Kelsey oneil [facility] 7 14:07:07 Migraine 27177256 Active Wendybarb oneil [facility] 7 11:45:56 Insomnia 737493318 Active Wendy Rodríguezbarb oneil [facility] 7 11:45:56 Anxiety 02319939 Active Wendy Rodríguezbarb oneil, [facility] 7 11:45:56 Acute bronchit is 67508949 Completed 200801/19/2014 RECORDED 07/30/19 09 1:40PM BY BALDO PADILLA MA, ANNOTATI ON/ADDEN DUM Ashish Forte, [facility] [address], [place], [address] , [facility] 6 14:39:17 Acute bronchit is 28941123 Completed 200802/15/2014 RECORDED 07/30/19 09 1:40PM BY BALDO PADILLA MA, ANNOTATI ON/ADDEN DUM Ashish Forte, [facility] [address], [place], [address] , [facility] 6 14:39:17 Tubercul osis screenin g Completed 200801/19/2014 RECORDED 11/27/19 09 1:12PM BY YOSELIN MAYERS MD, OFFICE VISIT Ashish Forte, [facility] [address], [place], [address] , [facility] 6 14:39:17 Tubercul osis screenin g Completed 200802/15/2014 RECORDED 11/27/19 09 1:12PM BY YOSELIN MAYERS MD, OFFICE VISIT Ashish Forte, [address], [place], [address] , [facility] 6 14:39:17 Administ ration of bacteria l and viral vaccine Completed 200901/19/2014 RECORDED 09/01/19 10 3:29PM BY YOSELIN MAYERS MD, OFFICE VISIT Ashish Forte, [facility] [address], [place], [address] , [facility] 6 14:39:17 Administ ration of bacteria l and viral vaccine Completed 200902/15/2014 RECORDED 09/01/19 10 3:29PM BY YOSELIN MAYERS MD, OFFICE VISIT Ashish Forte, [facility] [address], [place], [address] , [facility] 6 14:39:17 Influenz a vaccine needed [id number] 06 Completed 201001/19/2014 RECORDED 04/04/20 11 1:24PM BY KIMBERLYN NORTON PA-C, OFFICE VISIT Ashish Forte, [facility] [address] [address], [place], [address] , [facility] 6 14:39:17 Influenz a vaccine needed [id number] 06 Completed 201002/15/2014 RECORDED 04/04/20 11 1:24PM BY KIMBERLYN NORTON PA-C, OFFICE VISIT Ashish Forte, [facility] [address] [place] [address], [place], [address] , [facility] 6 14:39:17 Epigastr ic pain 16398933 Completed 201101/19/2014 RECORDED 08/24/19 12 4:48PM BY SNEHA MCKINNEY, ANNOTATI ON/ADDEN DUM Ashish Forte [facility] [address] [place] [address], [place], [address] , [facility] 6 14:39:17 Acute pharyngi tis 043311053 Completed 201101/19/2014 RECORDED 08/24/19 12 4:48PM BY SNEHA MCKINNEY, ANNOTATI ON/ADDEN YAIMA Forte, [facility] [address] [address], [place], [address] , [facility] 6 14:39:17 Acute sinusiti s 15376116 Completed 201101/19/2014 RECORDED 08/24/19 12 4:48PM BY SNEHA MCKINNEY, ANNOTATI ON/ADDEN DUM Kelsey Sanchez MA [facility], [facility] 7 14:06:58 Conjunct ivitis 5760628 Completed 201101/19/2014 RECORDED 08/24/19 12 4:48PM BY SNEHA MCKINNEY, ANNOTATI ON/ADDEN YAIMA Forte, [facility] [address] [address], [place], [address] , [facility] 6 14:39:17 Cough 11598537 Completed 201101/19/2014 RECORDED 08/24/19 12 4:48PM BY SNEHA MCKINNEY, ANNOTATI ON/ADDEN YAIMA Forte, [facility] [address] [address], [place], [address] , [facility] 6 14:39:17 Urinary tract infectio us disease 28168264 Completed 201101/19/2014 RECORDED 08/24/19 12 4:48PM BY SNEHA MCKINNEY, ANNOTATI ON/ADDEN YAIMA Forte, [facility] [address] [address], [place], [address] , [facility] 6 14:39:17 Epigastr ic pain 63480792 Completed 201102/15/2014 RECORDED 08/24/19 12 4:48PM BY SNEHA MCKINNEY, ANNOTATI ON/MACYEN YAIMA Forte, [facility] [address] [address], [place], [address] , [facility] 6 14:39:17 Acute pharyngi tis 660413365 Completed 201102/15/2014 RECORDED 08/24/19 12 4:48PM BY SNEHA MCKINNEY, ANNOTATI ON/ADDEN YAIMA Forte, [facility] [address] [address], [place], [address] , [facility] 6 14:39:17 Acute sinusiti s 60919121 Completed 201102/15/2014 RECORDED 08/24/19 12 4:48PM BY SNEHA MCKINNEY, ANNOTATI ON/ADDEN DUM [facility] 7 14:06:58 Conjunct ivitis 1837214 Completed 201102/15/2014 RECORDED 08/24/19 12 4:48PM BY SNEHA MCKINNEY, ANNOTATI ON/ADDEN YAIMA Forte, [facility] [address] [address], [place], [address] , [facility] 6 14:39:17 Cough 65645721 Completed 201102/15/2014 RECORDED 08/24/19 12 4:48PM BY SNEHA MCKINNEY, ANNOTATI ON/ADDEN YAIMA Forte, [facility] [address] [facility], [place], [address] , [facility] 6 14:39:17 Urinary tract infectio us disease 01005931 Completed 201102/15/2014 RECORDED 08/24/19 12 4:48PM BY SNEHA MCKINNEY, ANNOTATI ON/ADDEN YAIMA Forte, [facility] [address] [address], [place], [address] , [facility] 6 14:39:17 Disorder of posterio r pituitar y 96424471 Completed 201201/19/2014 RECORDED 04/27/20 13 3:15PM BY EARLE HOOK I, TOÑO ON/STACIA Forte [facility] [address], [place], [address] , [facility] 6 14:39:17 Allergic rhinitis 66517868 Completed 201201/19/2014 RECORDED 04/27/20 13 3:15PM BY TOÑO SHAIKH ON/STACIA Sanchez MA null, [facility] 7 14:07:32 Anxiety state 431364182 Completed 201201/19/2014 RECORDED 04/27/20 13 3:15PM BY TOÑO SHAIKH ON/ADDBABATUNDE Forte, [facility] [address] [address], [place], [address] , [facility] 6 14:39:17 Chronic sinusiti s 56227766 Completed 201201/19/2014 IMPRESSI ON: ACUTE INFECTIO N RESOLVIN G. CALL IN 1 WEEK IF NOT BETTER. ONLY USE SINUS RINSE WHEN SXS, NOT DAILY SINCE THIS INCREASE S URI OCCURENC E. LORATADI NE NOT HELPING HER AND RAVEN HAS HELPED IN THE PAST SO WILL DO RAVEN OTC.; RECORDED 04/27/20 13 3:15PM BY TOÑO SHAIKH ON/STACIA Sanchez MA null, [facility] 7 14:07:34 Dizzines s and giddines s 108054008 Completed 201201/19/2014 IMPRESSI ON: SECONDAR Y TO SINUSITI S, CALL IF NOT RESOLVED IN 1 WEEK; RECORDED 04/27/20 13 3:15PM BY TOÑO SHAIKH ON/STACIA Forte, [facility] [address] [address], [place], [address] , [facility] 6 14:39:17 Hyperhid rosis 537402375 Completed 201201/19/2014 RECORDED 04/27/20 13 3:15PM BY TOÑO SHAIKH ON/STACIA Forte, [facility] [address] [address], [place], [address] , [facility] 6 14:39:17 Examinat ion for suspecte d mental disorder Completed 201201/19/2014 RECORDED 04/27/20 13 3:15PM BY TOÑO SHAIKH ON/STACIA Forte, [facility] [address] [address], [place], [address] , [facility] 6 14:39:17 Tobacco user [id number] Completed 201201/19/2014 RECORDED 04/27/20 13 3:15PM BY TOÑO SHAIKH ON/ADDBABATUNDE Forte, [facility] [address] [address], [place], [address] , [facility] 6 14:39:17 History of clinical finding in subject 405364908 Completed 201207/23/2014 RECORDED 04/27/20 13 3:15PM BY TOÑO SHAIKH ON/STACIA Forte, [facility] [address] [address], [place], [address] , [facility] 6 14:39:17 Eruption [id number] Completed 201201/19/2014 STORY: PIGMENTE D LESION,R ESPONDS TO RETINOL; RECORDED 04/27/20 13 3:15PM BY TOÑO SHAIKH ON/STACIA Forte, [facility] [address] [address], [place], [address] , [facility] 6 14:39:17 Adult health examinat ion Completed 201201/19/2014 RECORDED 04/27/20 13 3:15PM BY TOÑO SHAIKH/STACAI Forte, [facility] [address] [address], [place], [address] , [facility] 6 14:39:17 Verruca vulgaris 71677821 Completed 201201/19/2014 IMPRESSI ON: R 3RD DIGIT, SUCCESSF ULLY APPLIED CRYOTHER APY WITHOUT COMPLICA TION. F/U PRN IF ADD'L TX'S ARE NEEDED.; RECORDED 04/27/20 13 3:15PM BY TOÑO SHAIKH ON/ADDBABATUNDE Forte, [facility] [address], [place], [place], [address] , [facility] 6 14:39:17 Disorder of posterio r pituitar y 61863200 Completed 201202/15/2014 RECORDED 04/27/20 13 3:15PM BY TOÑO SHAIKH ON/STACIA Forte, [facility] [address], [place], [address] , [facility] 6 14:39:17 Anxiety state 733616044 Completed 201202/15/2014 RECORDED 04/27/20 13 3:15PM BY TOÑO SHAIKH ON/STACIA Forte, [facility] [address], [place], [address] , [facility] 6 14:39:17 Dizzines s and giddines s 542458690 Completed 201202/15/2014 IMPRESSI ON: SECONDAR Y TO SINUSITI S, CALL IF NOT RESOLVED IN 1 WEEK; RECORDED 04/27/20 13 3:15PM BY TOÑO SHAIKH ON/ADDEN YAIMA Forte, [facility] [address], [place], [address] , [facility] 6 14:39:17 Hyperhid rosis 039995137 Completed 201202/15/2014 RECORDED 04/27/20 13 3:15PM BY TOÑO SHAIKH ON/STACIA Forte, [facility] [address], [place], [address] , [facility] 6 14:39:17 Examinat ion for suspecte d mental disorder Completed 201202/15/2014 RECORDED 04/27/20 13 3:15PM BY TOÑO SHAIKH ON/STACIA Forte, [facility] [address] [address], [place], [address] , [facility] 6 14:39:17 Tobacco user [id number] Completed 201202/15/2014 RECORDED 04/27/20 13 3:15PM BY TOÑO SHAIKH ON/STACIA Forte, [facility] [address] [address], [place], [address] , [facility] 6 14:39:17 Eruption [id number] Completed 201202/15/2014 STORY: PIGMENTE D LESION,R ESPONDS TO RETINOL; RECORDED 04/27/20 13 3:15PM BY TOÑO SHAIKH ON/STACIA Forte, [facility] [address] [address], [place], [address] , [facility] 6 14:39:17 Adult health examinat ion Completed 201202/15/2014 RECORDED 04/27/20 13 3:15PM BY TOÑO SHAIKH ON/STACIA Forte, [facility] [address] [address], [place], [address] , [facility] 6 14:39:17 Verruca vulgaris 21161580 Completed 201202/15/2014 IMPRESSI ON: R 3RD DIGIT, SUCCESSF ULLY APPLIED CRYOTHER APY WITHOUT COMPLICA TION. F/U PRN IF ADD'L TX'S ARE NEEDED.; RECORDED 04/27/20 13 3:15PM BY TOÑO SHAIKH ON/STACIA Forte, [facility] [address], [place], [address] , [facility] 6 14:39:17 Allergic rhinitis 28767727 Active 2013 Wendy oneil [facility] 7 11:45:56 Amenorrh ea 86843393 Active 2013 Wendy oneil [facility] 7 11:45:56 Chronic sinusiti s 94127711 Completed 201311/26/2016 Kelsey oneil, [facility] 7 14:07:34 Follow-u p encounte r Completed 201301/19/2014 RECORDED 09/16/19 14 11:31AM BY JOSÉ MIGUEL GONZALEZ MA, ANNOTATI ON/STACIA Forte, [facility] [address], [place], [address] , [facility] 6 14:39:17 Family history of malignan t neoplasm of gastroin testinal tract 256157471 Completed 201311/26/2016 STORY: PT WILL CALL [facility]; RECORDED 09/16/19 14 12:11PM BY YOSELIN MAYERS MD, OFFICE VISIT Kelsey oneil [facility] 7 14:07:16 Inflamma tory disease of liver 692910710 Active 2013 Wendybarb oneil [facility] 7 11:45:56 Menopaus al symptom 71508464 Active 2013 Wendy Rodríguez [facility] 7 11:45:56 Hyperlip idemia 61547607 Active 2013 Wendy oneil [facility] 7 11:45:56 Malaise and fatigue 446791796 Completed 201311/26/2016 RECORDED 09/16/19 14 11:32AM BY JOSÉ MIGUEL GONZALEZ MA, OFFICE VISIT Kelsey oneil, [facility] 7 14:07:12 Patient status finding [id number] Completed 201307/23/2014 RECORDED 09/16/19 14 11:32AM BY JOSÉ MIGUEL GONZALEZ MA, OFFICE VISIT Ashish Forte, [facility] [address], [place], [address] , [facility] 6 14:39:17 Lesion of ulnar nerve 718943758 Completed 201301/19/2014 IMPRESSI ON: NO LEANING ELBOW ON TABLE. ELBOW EXTENDED WHEN SLEEPING . CALL IF NOT IMPROVIN G, CAN DO HAND SURGEON REFERRAL ; RECORDED 09/16/19 14 11:31AM BY JOSÉ MIGUEL GONZALEZ MA, ANNOTATI ON/ADDEN YAIMA Forte, [facility] [address], [place], [address] , [facility] 6 14:39:17 Vaginiti s and vulvovag initis Completed 201311/26/2016 IMPRESSI ON: OCCURS WITH ANTIBIOT ICS; RECORDED 09/16/19 14 12:27PM BY YOSELIN MAYERS MD, OFFICE VISIT Kelsey oneil, [facility] 7 14:07:01 Vitamin D deficien 10523383 Active 2013 Wendy oneil [facility] 7 11:45:56 Follow-u p encounte r Completed 201302/15/2014 RECORDED 09/16/19 14 11:31AM BY JOSÉ MIGUEL GONZALEZ MA, ANNOTATI ON/ADDEN YAIMA Forte, [facility] [address], [place], [address] , [facility] 6 14:39:17 Lesion of ulnar nerve 353513892 Completed 201302/15/2014 IMPRESSI ON: NO LEANING ELBOW ON TABLE. ELBOW EXTENDED WHEN SLEEPING . CALL IF NOT IMPROVIN G, CAN DO HAND SURGEON REFERRAL ; RECORDED 09/16/19 14 11:31AM BY JOSÉ MIGUEL GONZALEZ MA, ANNOTATI ON/ADDEN DUM Ashish Forte, [facility] [address], [place], [address] , [facility] 6 14:39:17 Degenera tion of lumbar interver tebral disc 65879000 Active 2013 Wendy oneil [facility] 7 11:45:56 Screenin g for malignan t neoplasm of cervix Completed 201307/23/2014 RECORDED 09/18/19 14 3:16PM BY BHAVANI VILLALOBOS, DESTINEYIC AL SUMMARY Ashish Forte [facility] [address], [place], [address] , [facility] 6 14:39:17 Screenin g for malignan t neoplasm of colon Completed 201307/23/2014 RECORDED 10/21/19 14 1:40PM BY BHAVANI VILLALOBOS, KRYSTEN AL SUMMARY Ashish Forte [facility] [address], [place], [address] , [facility] 6 14:39:17 Loss of hair 840684525 Active 2016 Wendy oneil [facility] 7 11:45:56 Impaired fasting glycemia 241418467 Active 2017 Yoselin oneil [facility] 8 21:40:21 Problem Notes None recorded. Procedures Surgical History Date Name Laterality Status Provider Name and Address Organization Details Recorded Time Caesarean Section completed Ashish Forte [facility] [address], [place], [address], [facility] 03/11/2014 13:38:23 Hernia Repair completed Ashish Forte, [facility] [address], [place], [address], [facility] 03/11/2014 13:38:23 Imaging Results None recorded. Procedure Notes None recorded. Medical Equipment None Reported. Allergies Allergen ID Allergen Name Allergen Category Reaction Reaction Severity Criticality Documentation Date Start Date Code Code System Note Provider Name and Address Organization Details Recorded Time 6037 Biaxin medicatio n Not available Not available Not available 01/19/20142013 87573 9 [facility]Norm [facility] 14:06[facility]39 6038 Celebrex medicatio n Not available Not available Not available 01/19/20142013 01354 7 RxNorm [facility] 14:06:41 6039 Product containin g penicilli n (product) medicatio n hives Not available Not available 01/19/2014 59058 8001 SNOMED [facility] 11:45:40 Medications Name Sig Start Date Stop Date Status Note LastModified by Organization Details LastModified Time quetiapin e 25 mg tablet TAKE 1 TABLET BY MOUTH AT BEDTIME 07/27 completed Not Available Not Available Not Available pioglitaz one 15 mg tablet Take 1 tablet every day by oral route for 30 days. active Not Available Not Available No t Available fluconazo le 100 mg tablet TAKE 2 TABLETS BY MOUTH EVERY DAY FOR 3 DAYS 07/27 completed Not Available Not Available Not Available buspirone 5 mg tablet 07/27 completed Not Available Not Available Not Available clonidine HCl 0.1 mg tablet TAKE 1 TABLET BY MOUTH EVERY DAY 2018 active Not Available Not Available Not Avai lable prednison e 10 mg tablet QD 08/31 completed RECORDED 11/02/19 09 9:08AM BY YOSELIN MAYERS MD, MEDICATI ON AUTO-MERON CTIVATIO N; Not Available Not Available Not Available Retin-A 0.05 % topical cream DAILY 08/17 completed RECORDED 08/17/19 12 4:21PM BY TOÑO VERAS ON/ADDEN DUM; Not Available Not Available Not Available doxycycli ne hyclate 100 mg capsule TAKE 1 CAPSULE TWICE DAILY FOR 10 DAYS 09/27 completed Not Available Not Available Not Available trazodone 50 mg tablet TAKE 1 TABLET BY MOUTH EVERY NIGHT NEEDED 09/27 completed Not Available Not Available Not Available azithromy valerie 250 mg tablet TAKE 2 TABLETS BY MOUTH TODAY, THEN TAKE 1 TABLET DAILY FOR 4 DAYS 09/27 completed Not Available Not Available Not Available fluconazo le 150 mg tablet 09/27 completed Not Available Not Available Not Available methylphe nidate 10 mg tablet Take 1 tablet as needed by oral route for 30 days. 09/27 completed Not Available Not Available Not Available ketotifen 0.025 % (0.035 %) eye drops 11/26 completed Not Available Not Available Not Available clarithro mycin 500 mg tablet TWO TIMES DAILY 08/17 completed RECORDED 08/17/19 12 4:25PM BY YOSELIN MAYERS MD, ANNOTATI ON/ADDEN DUM; Not Available Not Available Not Available prednison e 20 mg tablet 07/27 completed Not Available Not Available Not Available dextroamp hetamine- amphetami ne 10 mg tablet active Not Available Not Available Not Available Tubersol 5 tub. unit/0.1 mL intraderm al injection solution Inject 0.1 mL by intrader mal route. 2018 active Not Available Not Available Not Avai lable prednison e 5 mg tablet Take 1 tablet every day by oral route for 10 days. 09/27 completed Not Available Not Available Not Available betametha sone valerate 0.1 % lotion 02/07 completed Not Available Not Available Not Available ciproflox acin 500 mg tablet BID 04/06 completed RECORDED 09/24/19 08 11:24PM BY YOSELIN MAYERS MD, MEDICATI ON AUTO-MERON CTIVATIO N; Not Available Not Available Not Available sulfameth oxazole 800 mg-trimet hoprim 160 mg tablet TAKE 1 TAB BY MOUTH 2 TIMES A DAY 07/27 completed Not Available Not Available Not Available triamtere ne 37.5 mg-hydroc hlorothia zide 25 mg capsule Take 1 capsule every day by oral route for 90 days. 09/27 completed Not Available Not Available Not Available pantopraz ole 20 mg tablet,de layed release DAILY 09/01 completed RECORDED 09/01/19 10 3:10PM BY HAJA TEJADA, OFFICE VISIT; Not Available Not Available Not Available alprazola m 0.25 mg tablet 09/27 completed Not Available Not Available Not Available estradiol 1 mg tablet Take 1 tablet every day by oral route as directed for 90 days. active Not Available Not Available No t Available dextroamp hetamine- amphetami ne ER 20 mg 24hr capsule,e xtend release Take 1 capsule every day by oral route for 30 days. active Not Available Not Available No t Available benzonata te 100 mg capsule 09/27 completed Not Available Not Available Not Available lisinopri l 10 mg tablet Take 1 tablet every day by oral route for 90 days. 09/27 completed Not Available Not Available Not Available clobetaso l 0.05 % topical foam 09/27 completed Not Available Not Available Not Available polymyxin B sulfate 10,000 unit-trim ethoprim 1 mg/mL eye drops QID 04/11 completed RECORDED 06/28/20 11 1:38PM BY KIMBERLYN NORTON PA-C, MEDICATI ON AUTO-MERON CTIVATIO N; Not Available Not Available Not Available progester one micronize d 200 mg capsule Take 1 capsule every day by oral route as directed for 90 days. 06/24 completed Not Available Not Available Not Available fluoxetin e 10 mg capsule Take 1 capsule every day by oral route for 30 days. active Not Available Not Available No t Available mometason e 50 mcg/actua tion nasal spray USE 2 SPRAYS IN EACH NOSTRIL EVERY DAY 11/26 completed Not Available Not Available Not Available monteluka st 10 mg tablet Take 1 tablet every day by oral route as directed for 30 days. active Not Available Not Available No t Available codeine 10 mg-guaife nesin 100 mg/5 mL oral liquid Take 10 mL every 4 hours by oral route as directed for 6 days. 11/26 completed Not Available Not Available Not Available azelastin e 137 mcg (0.1 %) nasal spray Lyons 2 sprays twice a day by intranas al route. active Not Available Not Available No t Available hydroxych loroquine 200 mg tablet Take 1 tablet twice a day by oral route. active Not Available Not Available No t Available levofloxa valerie 500 mg tablet QD 08/27 completed RECORDED 11/13/19 13 3:44PM BY SAMANTA PENN MA, MEDICATI ON AUTO-MERON CTIVATIO N; Not Available Not Available Not Available methylpre dnisolone 4 mg tablets in a dose pack 09/27 completed Not Available Not Available Not Available estradiol 0.0375 mg/24 hr semiweekl y transderm al patch 2 X WEEK 10/13 completed RECORDED 10/21/19 14 1:39PM BY YOSELIN AMYERS MD, MEDICATI ON AUTO-MERON CTIVATIO N; Not Available Not Available Not Available methylphe nidate ER 18 mg tablet,ex tended release 24 hr TAKE 1 TABLET BY MOUTH EVERY MORNING 09/27 completed Not Available Not Available Not Available fluoxetin e 20 mg capsule 09/27 completed Not Available Not Available Not Available fluticaso ne propionat e 50 mcg/actua tion nasal spray,rebel pension active Not Available Not Available Not Available doxycycli ne hyclate 100 mg tablet Take 1 tablet twice a day by oral route for 10 days. 03/08 completed Not Available Not Available Not Available finasteri de 5 mg tablet Take 0.5 tablets every day by oral route for 60 days. active Not Available Not Available No t Available loratadin e 10 mg tablet 09/27 completed Not Available Not Available Not Available methylphe nidate ER 27 mg tablet,ex tended release 24 hr 09/27 completed Not Available Not Available Not Available Vitamin D 50,000 unit capsule Take 1 capsule every day by oral route. 02/07 completed Not Available Not Available Not Available albuterol (refill) 90 mcg/actua tion aerosol inhaler FOUR TIMES DAILY, NEEDED 09/01 completed RECORDED 09/01/19 10 3:10PM BY HAJA TEJADA, OFFICE VISIT; Not Available Not Available Not Available azithromy valerie 500 mg tablet Take 1 tablet every day by oral route as directed for 5 days. 11/26 completed Not Available Not Available Not Available metaxalon e 800 mg tablet THREE TIMES DAILY, NEEDED 07/17 completed RECORDED 07/18/19 10 11:38AM BY YOSELIN MAYERS MD, MEDICATI ON AUTO-MERON CTIVATIO N; Not Available Not Available Not Available bupropion HCl XL 300 mg 24 hr tablet, extended release TAKE 1 TABLET BY MOUTH EVERY MORNING 07/27 completed Not Available Not Available Not Available estradiol 1 mg po qd 04/06 completed Not Available Not Available Not Available progester one 30 po qd 04/06 completed Not Available Not Available Not Available Vitamin D 5000 po qd active Not Available Not Available No t Available fexofenad ine DAILY 04/04 completed RECORDED 04/04/20 11 1:02PM BY VETO GUEVARA MA, OFFICE VISIT; Not Available Not Available Not Available Adderall XR (20mg) QD 09/01 completed RECORDED 09/01/19 10 3:10PM BY HAJA TEJADA, OFFICE VISIT; Not Available Not Available Not Available Vyvanse 50 mg capsule TAKE 1 CAPSULE BY MOUTH ONCE A DAY 07/27 completed Not Available Not Available Not Available Vitamin D-3 with Aloe 120 mg-1,000 unit-10 mg tablet Take 1 tablet every day by oral route as directed . 04/06 completed Not Available Not Available Not Available Raven Allergy 180 mg tablet Take 1 tablet every day by oral route. active Not Available Not Available No t Available Fish Oil 1,000 mg (120 mg-180 mg) capsule Take 1 capsule every day by oral route. 06/24 completed Not Available Not Available Not Available Vitals Date Recorded Body height Body mass index (BMI) Body weight Heart rate Oxygen saturation Body temperature Systolic And Diastolic Provider Name and Address Organization Details Last Updated DateTime 8 177.8 cm 25.8 kg/m2 06525.6 3 g 94 /min 98 % 97.9 [degF] 138/62 mm[Hg] Earle Berg [facility] 8 11:01:49 Date Recorded Body height Provider Name an d Address Organization Details Last Updated DateTime 09/30/2018 177.8 cm Kelsey Bigby [facility] 09/30/2018 10:04:52 Date Recorded Body height Heart rate Oxygen saturation Body temperature Systolic And Diastolic Provider Name and Address Organization Details Last Updated DateTime 8 177.8 cm 79 /min 97 % 97.1 [degF] 115/72 mm[Hg] [facility] 8 10:36:09 Date Recorded Body height Oxygen saturation Heart rate Body temperature Body mass index (BMI) Body weight Systolic And Diastolic Provider Name and Address Organization Details Last Updated DateTime 7 177.8 cm 98 % 91 /min 98.1 [degF] 25.9 kg/m2 03926.7 3 g 132/89 mm[Hg] [facility] 7 11:21:56 Date Recorded Body height Body mass index (BMI) Body weight Body temperature Oxygen saturation Heart rate Systolic And Diastolic Provider Name and Address Organization Details Last Updated DateTime 8 177.8 cm 24.3 kg/m2 59863.2 1 g 97.6 [degF] 100 % 86 /min 133/81 mm[Hg] [facility] 8 10:49:34 Social History Question Answer Notes LastModified by Organizat ion Details LastModified Time Tobacco Smoking Status Former Smoker Samanta oneil [facility] 03/11/2014 13:25:56 Do You Have An Advance Directive? Yes Information not available 04/06/2016 Is Blood Transfusion Acceptable In An Emergency? Yes Information not available 04/06/2016 What Is Your Level Of Caffeine Consumption? None Information not available 04/06/2016 What Type Of Diet Are You Following? REGULAR Information not available 04/06/2016 Live Alone Or With Others? With Others Information not available 03/11/2014 Do You Take Precautions To Prevent Distracted Driving? Yes Information not available 04/06/2016 Have You Served In The ? No Information not available 04/06/2016 What Was The Date Of Your Most Recent Tobacco Screening? 06/24/2018 Information not available 01/29/2019 How Many Children Do You Have? 2 Eduardo 15, Ilan 9 ( 2013) [email or web address] Information not available 12/27/2014 Seat Belts Used Routinely Yes Information not available 04/06/2016 Smoke Alarm In Home Yes Information not available 04/06/2016 Are You Passively Exposed To Smoke? No Information not available 04/06/2016 How Much Tobacco Do You Smoke? No Information not available 04/06/2016 Do You Use Sunscreen Routinely? Yes Information not available 04/06/2016 Sex: Unknown Functional Status Question Answer Note LastModified by Organizat ion Details LastModified Time What is your level of alcohol consumption? None Information not available 03/11/2014 Are you currently employed? Yes Information not available 03/11/2014 Are you able to care for yourself independently? 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 Moderate Information not available 03/11/2014 Mental Status None recorded. Family History Relationship Description Onset Age of this Age Resolved Age Notes LastModified by Organization Details LastModified Time Mother Obese 71 [email or web address] Not availab le 04/06/2016 15:44:12 Paternal Uncle Malignant neoplasm of colon 40 [email or web address] Not available 15:43:45 Paternal Uncle Malignant neoplasm of colon two uncles with colon cancer [email or web address] Not available 04/06/2016 15:43:45 Father Well adult dad is 71 [email or web address] Not available 04/06/2016 15:44:35 Brother Diabetes mellitus Type 2 DM in brothe r mdalessandro Not available 04/06/2016 16:10:35 Medical History Condition Response Coronary Artery Disease N Other N Gout N Kidney Stones N Blood Diseases N Hyperthyroidism N Breast Cancer N mrsa exposure N COPD N Depression Y Lung Disease N Hypothyroidism N Defects or Inherited Disease N Developmental or Behavioral Disorders N Breast Problem N Anesthesia Complications N Headaches/Migraines N Varicose Veins N Anxiety Disorder Y Muscle, Joint, or Bone Problems Y Obesity N Vision or Eye Problems N Arthritis N Head Injury/Concussion N Polyps N Infertility N Mental Disorder N Congenital Anomalies N Acid Reflux (GERD) N Cancer N Stroke N ADHD Y Endometriosis N High Cholesterol N Liver Disease N Fibromyalgia N Headaches N Kidney Disease N Heart Problems N Ear or Hearing Problems N Hospitalizations N Thyroid Problems N GI Problems N Developmental Delay N Acne N Skin Problems N Eating Disorder N Anemia N Constipation N Bladder Problems N Mental Illness N Ovarian Cancer N Diabetes N Bedwetting N Blood Transfusions N Seizures/Epilepsy N Heart Problems/Murmur N Tuberculosis N AIDS/HIV N Congestive Heart Failure (CHF) N Eczema N Diverticulitis N Abuse/Domestic Violence N Asthma N Allergies N Reflux/GERD N Hepatitis N Heart Disease N Pulmonary Embolism N Hypertension N Osteoporosis N Chicken Pox N Autism Spectrum Disorder (ASD) N Gynecological History Statement/Question Response If Post Menopausal, Age at Menopause 46 LMP Unknown Obstetrics History GPAL:G 0 P 0 0 0 0 Immunizations Vaccine Type Date Status Note Provider Nam e and Address Organization Details Recorded Time Influenza, split virus, quadrivalent, preservative 6 completed Wendy oneil [facility] 06/14/2017 11:46:00 Influenza, split virus, trivalent, preservative 5 completed Wendy oneil [facility] 06/14/2017 11:46:00 Influenza, split virus, quadrivalent, preservative 8 completed Desiree oneil [facility] 06/24/2018 10:52:39 Influenza, split virus, quadrivalent, PF 6 completed Not Available [facility] 07/25/2019 02:22:04 Influenza, split virus, quadrivalent, PF 7 completed Not Available [facility] 07/25/2019 02:22:13 Tdap 0 completed Wendy oneil [facility] 06/14/2017 11:46:00 Influenza, split virus, trivalent, preservative 1 completed Wendy oneil [facility] 06/14/2017 11:46:00 Influenza, split virus, trivalent, PF 5 completed Not Available [facility] 07/25/2019 02:21:58 Past Encounters Encounter ID Performer Location Encounter Start Date Encounter Closed Date Diagnosis/Indication Diagnosis SNOMED-CT Code Diagnosis ICD10 Code Diagnosis IMO Codes Diagnosis Note [id number] [facility] [address] [place] [address] 07/30/2006 00:00:00 [id number] [facility] [address] [facility] [place] [address] 12/08/2004 00:00:00 [id number] [facility] [facility] [address] [facility] [place] [address] 04/21/2004 00:00:[id number] [place] [address] 10/07/2003 00:00:00 [id number] [facility] [address] [facility] [place] [address] 09/03/2006 00:00:00 [id number] [facility] [address] [facility] [place] [address] 03/21/2007 00:00:00 [id number] [facility] [facility] [address] [facility] [place] [address] 07/30/2008 00:00:00 [id number] [facility] [address] [facility] [place] [address] 08/11/2008 00:00:00 [id number] [facility] [address] [facility] [place] [address] 11/01/2008 00:00:00 [id number] [facility] [facility] [address] [facility] [place] [address] 11/24/2008 00:00:00 [id number] [facility] [facility] [address] [facility] [place] [address] 11/26/2008 00:00:00 [id number] [facility] [address] [facility] [place] [address] 05/16/2009 00:00:00 [id number] auto[facility]Comm erce [address] [facility] [place] [address] 07/07/2009 00:00:[id number] [place] [address] 08/11/2009 00:00:00 [id number] [facility] [facility]ce [address] [facility] [place] [address] 09/01/2009 00:00:00 [id number] auto[facility]Comm erce [address] [facility] [place] [address] 04/25/2010 00:00:00 [id number] auto[facility] erce [address] [facility] [place] [address] 07/06/2010 00:00:00 [id number] [facility] erce [address] [facility] [place] [address] 04/04/2011 00:00:00 [id number] [facility] [address] [facility] [place] [address] 06/28/2011 00:00:00 [id number] auto[facility]Comm erce [address] [facility] [place] [address] 08/24/2011 00:00:00 [id number] auto[facility]Comm erce [address] [facility] [place] [address] 04/27/2013 00:00:00 [id number] [facility] erce [address] [facility] [place] [address] 09/15/2013 00:00:00 [id number] Ashish Forte [facility] Main [facility] [address] [facility] [address] [place] [address] 03/11/2014 13:16:18 03/11/2014 14:09:13 Adult health examination 924346351 Hyperlipidemia 53292737 Amenorrhea 05327474 Inadequate immune status 989906114 [id number] Kimberlyn Norton PASUP Main Office [address] [address] [place] [address] 04/26/2014 11:40:53 04/26/2014 12:01:03 Acute sinusitis 52473905 [id number] Warren Vidal [facility] Main Office [address] [address] [place] [address] 07/23/2014 10:51:53 07/23/2014 11:36:38 Acute sinusitis 92379847 Needs infl uenza immunization 586320428 Chronic sinusitis 69352634 likely due to chronic allergies. Vaginitis and vulvovaginitis 858730976 she gets yeast infections with antibiotic s Allergic rhinitis 66365826 she does not want to do shots which were offered by dr ruiz. she wants to see if switch to nasonex helps [id number] Yoselin duque MD Main Office [address] [address] [place] [address] 12/27/2014 11:31:58 12/27/2014 12:20:29 Hyperlipidemia 49861500 Chronic sinusitis 69822253 continue allergy meds and prn tx of bacterial sinusitis Menopausal syndrome 448292706 pt will continue remifenin and will have Pap test done soon. Post-traum atic stress disorder 86012185 pt has diagnosis per Dr Tanika Gómez/ pt has tried various meds/ off meds now [id number] Ashish Forte [facility] Main Office [address] [address] [place] [address] 07/21/2015 14:15:10 07/21/2015 14:51:14 Ankle pain 091072882 M25.579 SX x 3 weeks s/p injury, likely a sprain but will get XR. Ibuprofen TID as needed, ice elevate, rest, air cast for compressio n/ support. Will also refer to ortho, patient will schedule appointmen t for eval, if sx improve before her appt she will cancel. Call/ return for worsening. [id number] Yoselin duque MD Main Office [address] [address] [place] [address] 04/06/2016 14:38:22 04/06/2016 16:01:03 Adult health examination 172331789 Z00.00 Needs infl uenza immunization 273927221 Z23 Screening for malignant neoplasm of breast 777264037 Z12.39 Polyp of colon 42702451 K63.5 DR garcia recommende d colonoscop y in 2019 ( done 2013) Chronic rhinitis 0917759 6 J31.0 Impaired f asting glycemia 143200722 R73.01 hx of GDM [id number] Rosio Conklin PA-C Main Office [address] [address] 04/11/2016 15:13:44 04/11/2016 15:52:53 Eustachian tube disorder 39864962 H69.93 Prednisone induced symptoms of anxiety . ? elev. BP. Take 20 mg for 2 days and discontinu e Prednisone . Continue allrgy meds. Elevated blood-pressure reading without diagnosis of hypertension 398675765 R03.0 Check BP couple of times per week. LOwer sodium and caffeine. REports if over 140/90 to PCP. [id number] Yoselin duque MD Main Office [address] [place] [address] 11/26/2016 14:02:49 11/26/2016 14:46:19 Fatigue 02994156 R53.83 Alopecia 52730667 L65.9 [id number] Yoselin duque MD Main Office [address] [place] [address] 02/07/2017 11:20:48 02/07/2017 12:05:22 Sinusitis 20906798 J32.9 Acute vaginitis 49649910 N76.0 SYMPTOMS: vaginal itching? yes discharge? yes recent antibiotic exposure? no feels like previous yeast infection? yes POSSIBLE CONTRAINDI CATIONS TO TELEPHONE TREATMENT: pelvic pain? no fever? no ? no pain with intercours e? no PROVIDER ACTION: Reviewed nursing notes? yes Recommende d action appropriat e for telephone treatment Treatment fluconazol e [id number] Rosio Conklin PA-C Main Office [address] [address] 03/08/2017 14:50:36 03/08/2017 15:46:57 Acute pharyngitis 624983595 J02.9 Does not appear fungal or bacterial in etilology. Could be viral vs irritation from postnasal secretions . Use salt water rinse on throat. Will send out throat culture and call if positive. PT has appt scheduled with immunology in 1 week, have them take a look at the throat. Continue allergy medication s. Contact the office if worsening symptoms or new concerns. [id number] Yoeslin duque MD Main Office [address] [address] [place] [address] 04/23/2017 13:06:10 04/23/2017 16:16:41 [id number] Yoselin duque MD Main Office [address] [address] [place] [address] 05/28/2017 09:51:52 05/28/2017 10:33:15 Adult health examination 437463133 Z00.00 Screening for malignant neoplasm of breast 846950308 Z12.39 Needs infl uenza immunization 835531731 Z23 Hyperlipidemia 82707275 E78.5 Essential hypertension 95596477 I10 [id number] Yoselin duque MD Main Office [address] [address] [place] [address] 06/14/2017 11:07:31 06/14/2017 11:52:48 Needs influenza immunization 010272048 Z23 Essential hypertension 26980511 I10 [id number] FOX Limon Main Office [address] [address] [place] [address] 09/27/2017 10:38:17 09/27/2017 11:34:08 Gastroesophageal reflux disease 437485660 K21.9 she has omeprazole at home, will try taking it in am on empty stomach with full glass of water Otitis media 73812665 H6 6.92 left sided. will tx with zpak as she also has had a cough Cough 52850193 R05 robitussin with codeine as needed, no driving or alchol with med. [id number] Yoselin duque MD Main Office [address] [address] [place] [address] 11/26/2017 10:24:26 11/26/2017 11:01:13 Essential hypertension 69847496 I10 good control on only clonidine qhs Impaired f asting glycemia 486339401 R73.01 hx of GDM Gastroesop hageal reflux disease 646405947 K21.0 [id number] FOX Limon Main Office [address] [facility] [address] [place] [address] 06/24/2018 10:34:13 06/24/2018 11:30:56 Fatigue 57385171 R53.83 Pain of mu ltiple joints 27248017 M25.50 Vitamin D deficiency 347 54848 E55.9 Impaired f asting glycemia 548812060 R73.01 Anemia due to unknown mechanism 48648394 D64.9 Hyperlipidemia 25029080 E78.5 Migraine 41425509 G43.90 9 Frontal fi brosing alopecia 260661969 L66.8 [id number] Gerard Flores MD Main Office [address] [place] [address] 09/30/2018 09:58:09 09/30/2018 10:08:02 Tuberculosis screening 226683871 Z11.1 Health Concerns Section Related Observation LastModified by Organization Detai ls LastModified Time None Recorded Concern Status LastModified by Organization Details LastModified Time None Recorded Advance Directives Directive Y: Payers Insurance Date Sequence Insurance Name Policy Number Policy Alejandre Covered Member ID Alejandre Member ID Guarantor Name 09/30/2018 1 [employer] (POS II) [id number] Claire Hood [place] [id number] Claire Hood [place] 04/05/2016 1 [employer] [id number] Jaspreet Cook [place] [id number] Claire Hood [place] 09/29/2018 1 [facility] [id number] Claire Hood [place] [id number] Claire Hood [place] Notes Date Note Type Note Provider Name and Address Organization Details Recorded Time 7 text/html Hypertension F/UReported by PatientHPIFor associated symptoms, patient reportsno dizziness,no lightheadedness,no chest pain,no shortness of breath,no palpitations,no edema, andno calf pain with exertion. For lifestyle, patient reportsregular exerciseandlimiting/avoi ding salt. For medications, patient reportstaking medications as directedandno side effects from medication. Yoselin Christina null, [facility] 06/14/2017 11:52:26 8 text/html Generic HPI TemplateReported by PatientFeb developed cold/ sinus sx, had cold x 2 weeks and imrpoved slightly then came back with vengeance . Has had reflux, and changed her diet significantly due to stomach upset. Saturday went to for coughing/ congestion and took it, it did help and she has resumed flonase. cough lingering, feels it is low, tessalon perles and OTC cough meds are not helping, not sleeping due to heartburn, has been coughing all night. Yoselin ChopraCarla oneil [facility] 09/27/2017 16:36:38 8 text/html Hypertension F/UReported by PatientHPIFor associated symptoms, patient reportsno dizziness,no lightheadedness,no chest pain, andno shortness of breath. For lifestyle, patient reportsregular exerciseandlimiting/avoi ding salt. For medications, patient reportstaking medications as directedandno side effects from medication. GERD RefluxReported by PatientHPIFor symptoms, patient reportspostprandial painbut reportsheartburnandnoctu rnal. For quality, patient reportsburning. For severity, patient reportsmoderatebut reportsimproving. For duration, patient reportspresent 1-4 years. For onset/timing, patient reportsgradual onset. For context, patient reportsnon-smoker,no drug/alcohol abuse, andno drug alcohol withdrawal. For alleviating factors, patient reportsmedication. For associated symptoms, patient reportsno frequent coughing,no feeling of fullness/mass in throat,no hoarseness, andno food getting stuck. Generic HPI TemplateReported by PatientHPIFor severity, (pt has hx of gdm and fh of dm. see plan). Yoselin oneil [facility] 11/26/2017 11:03:13 8 text/html Generic HPI TemplateReported by PatientPresents in f/u, had high blood sugar and high cholesterol last visit. eliminated and grains rarely has those, no alcohol, taking supplements, has lost weight, doing acupuncture, is active, goes swimming, still feels tired. she did not have additional labs done because she has been working on self care. 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 has lost weight. Ashish Forte [facility] [address] [address], [place], [id number], [facility] 06/24/2018 12:36:43 OBGyn Episode No OBEpisode recorded.
== END 2025-05-27 14:38 | disposition home or self-care (01) ==
LOC: HO.HPHYS 14:11
PROVIDERS: PCP Hospitalist; Visit Provider Physical Medicine & Rehabilitation
DX: M54.16 Radiculopathy, lumbar region (principal); M53.3 Sacrococcygeal disorders, not elsewhere classified; M46.1 Sacroiliitis, not elsewhere classified
CPT/HCPCS: 99214; G2211